=== PATIENT | female | born 1975 | race Caucasian/White ===

== ENCOUNTER 2020-01-25 16:40 | Emergency (ER) | payer MEDICARE, MEDICAID, SELFPAY ==
--- NOTE | 2020-01-25 16:48 | DI.RAD.S_ITS ---
PROCEDURE: XR CHEST 1V INDICATIONS: overdose, agitation TECHNIQUE: One view of the chest was acquired. COMPARISON: None. FINDINGS: Surgical changes and devices: None. Lungs and pleura: Lungs are clear. No pleural effusions or pneumothorax. Mediastinum: Mediastinal contours appear normal. Heart size is normal. Bones and chest wall: No suspicious bony lesions. Overlying soft tissues appear unremarkable. IMPRESSION: No acute cardiopulmonary abnormalities or focal airspace disease. Dictated by: John Hanson M.D. on 01/25/2020 at 20:27 Approved by: John Hanson M.D. on 01/25/2020 at 20:29
--- NOTE | 2020-01-25 16:49 | ED_ITS ---
HPI - Overdose <Elo Ojeda, DO - Last Filed: 01/25/20 19:20> General Chief Complaint: Psychiatric Symptoms Stated Complaint: took mouthful of tegretol Time Seen by Provider: 01/25/20 16:40 Source: patient, EMS and other (caregiver/boyfriend) Mode of arrival: EMS Limitations: no limitations History of Present Illness HPI Narrative: 44-year-old female comes to the emergency department with complaint of agitation and that she took a mouthful of Tegretol. EMS was contacted. Per patient's caregivers/power of erisa attorney/boyfriend patient has a history of Asperger's pain or autism, seizure disorder, hyponatremia, SIADH, hypothyroidism and hidradenitis. She has had a prior bariatric surgery, [place] for ostomy and GI bleeds in the past. They have had increasing stress secondary to legal issues and the caregivers mother living with them after having a fall and a hip replacement and she became more agitated and upset today. Patient took a mouthful of Tegretol which was still within her mouth when she arrived to the ER. She was aggressive and combative with EMS they gave her Versed in route, additional dose just on arrival. Patient has become more verbal she is typically verbal and ambulatory in stated that she was trying her kill herself and that she is pissed off and angry. She has told the nursing staff that she would tried another way if she had another option available to her. She does not answer any other questions for me at this time. Patient has told us ?I do not give a shit? and ?that you people can all fuck off.? Related Data Home Medications Medication Instructions Recorded Confirmed Flax, Fish and Borage Oil 30 ml PO DAILY 01/25/20 01/25/20 Heart Remedy 30 ml PO DAILY 01/25/20 01/25/20 Lemon Fish Oil 30 ml PO DAILY 01/25/20 01/25/20 [place] Coconut Oil 30 ml PO DAILY 01/25/20 01/25/20 carbamazepine [Tegretol] 400 mg PO TID 01/25/20 01/25/20 diazepam [Valium] 5 mg PO TID 01/25/20 01/25/20 fentanyl 75 mcg TOPICAL Q48H 01/25/20 01/25/20 hydromorphone 4 mg PO Q4-6H PRN MDD 5 tab 01/25/20 01/25/20 multivitamin 10 ml PO DAILY 01/25/20 01/25/20 sodium chloride 1,000 mg PO DAILY 01/25/20 01/25/20 thyroid (pork) [[place] Thyroid] 30 mg PO DAILY 01/25/20 01/25/20 thyroid (pork) [[place] Thyroid] 60 mg PO DAILY 01/25/20 01/25/20 Allergies Allergy/AdvReac Type Severity Reaction Status Date / Time Haloperidol Allergy Unknown Uncoded 03/11/18 11:46 Phenobarbital Allergy Unknown Uncoded 03/11/18 11:46 Prochlorperazine Allergy Unknown Uncoded 03/11/18 11:46 Tetanus Toxoid Allergy Unknown Uncoded 03/11/18 11:46 Review of Systems <Elo Ojeda DO - Last Filed: 01/25/20 19:20> Review of Systems ROS Unobtainable: Other (unable to obtain. patient does not answer questions.) Patient History <Elo Ojeda DO - Last Filed: 01/25/20 19:20> Surgical History (Updated 01/25/20 @ 17:09 by Elo Ojeda DO) History of bariatric surgery (Acute) Exam <Elo Ojeda DO - Last Filed: 01/25/20 19:20> Narrative Exam Narrative: GEN: well nourished, well appearing female, alert, patient does not answer majority of questions but has clear speech, patient appears to be in moderate distress. Patient is uncooperative with care. Initially she was not verbally responsive but has become more verbal screaming and yelling you order at the staff and myself. Patient is an agitated and aggressive. She does know that she is at [facility] and has expressed this several times that she does not wish to be here. HEENT: Atraumatic, pupils are equal round reactive to light, extraocular movements are intact, no nystagmus noted, nares are clear, throat is clear without any exudates, erythema, tonsillar enlargement or uvular deviation, patient has multiple tablets chewed up with in her mouth these were suctioned ou t with little bit of saline and majority was removed. HEART: Regular rate and rhythm without murmur, clicks, rubs. Pulses are equal in upper and lower extremities LUNGS:Lungs clear to auscultation, no wheezes, rales, crackles, chest moves symmetrically ABD:bowel sounds normal, soft, non-tender, no guarding, rebound, rigidity, no masses noted, no hepatosplenomegaly :No CVA tenderness MSCL: Non-tender, no muscle atrophy, muscles strength 5/5 upper and lower extremities, full range of motion. NEURO:CN 2-12 intact, sensation normal. SKIN: No rash. PSYCH: Patient has expressed that she is suicidal and attempted to take the pills on purpose. She does not answer other questions. Initial Vital Signs Initial Vital Signs: Vital Signs Temperature 98.9 F 01/25/20 16:59 Pulse Rate 126 H 01/25/20 16:59 Respiratory Rate 34 H 01/25/20 16:59 Blood Pressure 107/83 01/25/20 16:59 Pulse Oximetry 96 01/25/20 16:59 <Esvin Ordonez DO - Last Filed: 01/26/20 08:14> Initial Vital Signs Initial Vital Signs: Vital Signs Temperature 98.9 F 01/25/20 16:59 Pulse Rate 126 H 01/25/20 16:59 Respiratory Rate 34 H 01/25/20 16:59 Blood Pressure 107/83 01/25/20 16:59 Pulse Oximetry 96 01/25/20 16:59 Course <Elo Ojdea, DO - Last Filed: 01/25/20 19:20> Orders Ordered: ED Orders 01/26/20 03:32 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 Stat Lorazepam (Ativan) 2 mg IV Q1HR PRN PRN Reason: Agitation Last Admin: 01/25/20 22:29 Dose: 2 mg Documented by: Admin: 01/25/20 18:14 Dose: 2 mg Documented by: CATHERINE Discontinued Medications Diazepam (Valium) 5 mg IV NOW ONE Stop: 01/25/20 17:48 Last Admin: 01/25/20 17:59 Dose: 5 mg Documented by: CATHERINE Hydromorphone HCl (Dilaudid) 2 mg PO NOW ONE Stop: 01/25/20 22:52 Last Admin: 01/25/20 23:52 Dose: Not Given Documented by: SHERRY Sodium Chloride (Normal Saline 0.9%) 1,000 mls @ 1,000 mls/hr IV BOLUS ONE Stop: 01/25/20 17:46 Last Infusion: 01/25/20 19:41 Dose: 0 mls/hr Documented by: Admin: 01/25/20 16:58 Dose: 1,000 mls/hr Documented by: SHERRY Lorazepam (Ativan) 2 mg IV NOW ONE Stop: 01/25/20 16:50 Last Admin: 01/25/20 16:58 Dose: 2 mg Documented by: SHERRY Lorazepam (Ativan) 2 mg IM NOW ONE Stop: 01/26/20 00:52 Last Admin: 01/26/20 01:18 Dose: 2 mg Documented by: AMARILIS Olanzapine (Zyprexa) 10 mg IM NOW ONE Stop: 01/26/20 00:53 Last Admin: 01/26/20 01:15 Dose: 10 mg Documented by: AMARILIS Vital Signs Vital signs: Vital Signs - 8 hr 01/26/20 01:48 01/26/20 08:00 Temperature 99.6 F Pulse Rate 94 H 89 Respiratory Rate 23 17 Blood Pressure [Left Arm] 108/61 107/63 Pulse Oximetry 97 99 <Esvin Ordonez DO - Last Filed: 01/26/20 08:14> Orders Ordered: ED Orders 01/26/20 03:32 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 [employer] Stat Lorazepam (Ativan) 2 mg IV Q1HR PRN PRN Reason: Agitation Last Admin: 01/25/20 22:29 Dose: 2 mg Documented by: Admin: 01/25/20 18:14 Dose: 2 mg Documented by: CATHERINE Discontinued Medications Diazepam (Valium) 5 mg IV NOW ONE Stop: 01/25/20 17:48 Last Admin: 01/25/20 17:59 Dose: 5 mg Documented by: CATHERINE Hydromorphone HCl (Dilaudid) 2 mg PO NOW ONE Stop: 01/25/20 22:52 Last Admin: 01/25/20 23:52 Dose: Not Given Documented by: SHERRY Sodium Chloride (Normal Saline 0.9%) 1,000 mls @ 1,000 mls/hr IV BOLUS ONE Stop: 01/25/20 17:46 Last Infusion: 01/25/20 19:41 Dose: 0 mls/hr Documented by: Admin: 01/25/20 16:58 Dose: 1,000 mls/hr Documented by: SHERRY Lorazepam (Ativan) 2 mg IV NOW ONE Stop: 01/25/20 16:50 Last Admin: 01/25/20 16:58 Dose: 2 mg Documented by: SHERRY Lorazepam (Ativan) 2 mg IM NOW ONE Stop: 01/26/20 00:52 Last Admin: 01/26/20 01:18 Dose: 2 mg Documented by: AMARILIS Olanzapine (Zyprexa) 10 mg IM NOW ONE Stop: 01/26/20 00:53 Last Admin: 01/26/20 01:15 Dose: 10 mg Documented by: AMARILIS Vital Signs Vital signs: Vital Signs - 8 hr 01/26/20 01:48 01/26/20 08:00 Temperature 99.6 F Pulse Rate 94 H 89 Respiratory Rate 23 17 Blood Pressure [Left Arm] 108/61 107/63 Pulse Oximetry 97 99 MDM - Overdose <Elo Ojeda DO - Last Filed: 01/25/20 19:20> Lab Data Attestation: I reviewed the patient's lab results. Result diagrams: 01/25/20 17:30 01/25/20 17:30 Labs: Lab Results 01/25/20 01/25/20 01/25/20 Range/Units 17:30 17:30 17:30 WBC 9.9 (4.5-11.0) X10^3/uL RBC 4.15 (4.0-5.2) X10^6/uL Hgb 13.2 (12.0-16.0) g/dL Hct 39.9 (36-46) % MCV 96.0 (80-100) fL MCH 31.7 (26-34) PG MCHC 33.0 (30-36) % RDW 13.1 (11.6-14.8) % Plt Count 336 (150-400) X10^3/uL Neut % (Auto) 32.3 L (50-75) % Lymph % (Auto) 53.5 H (25-40) % [place] % (Auto) 13.1 (3-14) % Eos % (Auto) 0.5 L (2-4) % Baso % (Auto) 0.6 (0-2) % Neut # (Auto) 3200 (6547-1853) /uL Lymph # (Auto) 5300 H (8659-9849) /uL [place] # (Auto) 1300 H (0-900) /uL Eos # (Auto) 100 (0-450) /uL Baso # (Auto) 100 (0-100) /uL PT 11.9 (10.1-12.7) SECONDS INR 1.0 (0.9-1.3) Sodium 133 L (137-145) mmol/L Potassium 4.2 (3.4-5.1) mmol/L Chloride 93 L (98-107) mmol/L Carbon Dioxide 22 (22-32) mmol/L BUN 4 L (7-17) mg/dL Creatinine 0.50 L (0.52-1.04) mg/dL Estimated GFR > 60.0 (>60) mL/min BUN/Creatinine Ratio 8.0 (6-22) Glucose 111 H (70-100) mg/dL Lactate (0.7-2.1) mmol/L Calcium 9.5 (8.4-10.2) mg/dL Total Bilirubin 0.4 (0.2-1.3) mg/dL Conjugated Bilirubin 0.0 (0.0-0.3) md/dL Unconjugated Bilirubin 0.3 (0.0-1.1) mg/dL AST 31 (14-36) IU/L ALT 21 (<35) IU/L Alkaline Phosphatase 85 (38-126) U/L Total Creatine Kinase 33 (30-135) U/L CK-MB (CK-2) TNP CK-MB (CK-2) Rel Index TNP Troponin I < 0.012 (0.01-0.034) ng/mL Total Protein 7.5 (6.3-8.2) g/dL Albumin 4.6 (3.5-5.0) g/dL Globulin 2.9 (1.7-4.1) g/dL Albumin/Globulin Ratio 1.6 (1.0-2.8) TSH (0.47-4.68) uIU/mL Urine Color Urine Appearance Urine pH (4.5-8.0) Ur Specific [place] (1.000-1.035) Urine Protein (Negative) Urine Glucose (UA) (Negative) g/dL Urine Ketones (NEGATIVE) Urine Occult Blood (Negative) Urine Nitrate (Negative) Urine Bilirubin (NEGATIVE) Urine Urobilinogen (0.2) E.U./dL Ur Leukocyte Esterase (NEGATIVE) Urine RBC (0-5/HPF) Urine WBC (0-5/HPF) Ur Squamous Epith Cells (0-5/HPF) Ur Transition Epith Cell (0-5/HPF) Amorphous Sediment Urine Bacteria (None) Ur Culture Indicated? Urine Test (Negative) Salicylates < 1.0 (<20) mg/dL U Opiates 300ng/mL cut (Negative) Ur Oxycodone Screen (Negative) Urine Methadone Screen (Negative) Acetaminophen < 10 L (10-30) ug/mL Ur Barbiturates Screen (Negative) Carbamazepine U Tricyclic Antidepress (Negative) Ur Phencyclidine Scrn (Negative) Ur Amphetamines Screen (Negative) U Methamphetamines Scrn (Negative) Ur MDMA Scrn (Ecstasy) (Negative) U Benzodiazepines Scrn (Negative) Urine Cocaine Screen (Negative) U Marijuana (THC) Screen (Negative) Ethyl Alcohol < 10 ( - 10) mg/dL Ref Test (Refrig) 01/25/20 01/25/20 01/25/20 Range/Units 17:30 17:30 18:30 WBC (4.5-11.0) X10^3/uL RBC (4.0-5.2) X10^6/uL Hgb (12.0-16.0) g/dL Hct (36-46) % MCV (80-100) fL MCH (26-34) PG MCHC (30-36) % RDW (11.6-14.8) % Plt Count (150-400) X10^3/uL Neut % (Auto) (50-75) % Lymph % (Auto) (25-40) % [place] % (Auto) (3-14) % Eos % (Auto) (2-4) % Baso % (Auto) (0-2) % Neut # (Auto) (6824-6774) /uL Lymph # (Auto) (7855-4088) /uL [place] # (Auto) (0-900) /uL Eos # (Auto) (0-450) /uL Baso # (Auto) (0-100) /uL PT (10.1-12.7) SECONDS INR (0.9-1.3) Sodium (137-145) mmol/L Potassium (3.4-5.1) mmol/L Chloride (98-107) mmol/L Carbon Dioxide (22-32) mmol/L BUN (7-17) mg/dL Creatinine (0.52-1.04) mg/dL Estimated GFR (>60) mL/min BUN/Creatinine Ratio (6-22) Glucose (70-100) mg/dL Lactate 2.8 H (0.7-2.1) mmol/L Calcium (8.4-10.2) mg/dL Total Bilirubin (0.2-1.3) mg/dL Conjugated Bilirubin (0.0-0.3) md/dL Unconjugated Bilirubin (0.0-1.1) mg/dL AST (14-36) IU/L ALT (<35) IU/L Alkaline Phosphatase (38-126) U/L Total Creatine Kinase (30-135) U/L CK-MB (CK-2) CK-MB (CK-2) Rel Index Troponin I (0.01-0.034) ng/mL Total Protein (6.3-8.2) g/dL Albumin (3.5-5.0) g/dL Globulin (1.7-4.1) g/dL Albumin/Globulin Ratio (1.0-2.8) TSH 1.31 (0.47-4.68) uIU/mL Urine Color Urine Appearance Urine pH (4.5-8.0) Ur Specific [place] (1.000-1.035) Urine Protein (Negative) Urine Glucose (UA) (Negative) g/dL Urine Ketones (NEGATIVE) Urine Occult Blood (Negative) Urine Nitrate (Negative) Urine Bilirubin (NEGATIVE) Urine Urobilinogen (0.2) E.U./dL Ur Leukocyte Esterase (NEGATIVE) Urine RBC (0-5/HPF) Urine WBC (0-5/HPF) Ur Squamous Epith Cells (0-5/HPF) Ur Transition Epith Cell (0-5/HPF) Amorphous Sediment Urine Bacteria (None) Ur Culture Indicated? Urine Test (Negative) Salicylates (<20) mg/dL U Opiates 300ng/mL cut (Negative) Ur Oxycodone Screen (Negative) Urine Methadone Screen (Negative) Acetaminophen (10-30) ug/mL Ur Barbiturates Screen (Negative) Carbamazepine Cancelled U Tricyclic Antidepress (Negative) Ur Phencyclidine Scrn (Negative) Ur Amphetamines Screen (Negative) U Methamphetamines Scrn (Negative) Ur MDMA Scrn (Ecstasy) (Negative) U Benzodiazepines Scrn (Negative) Urine Cocaine Screen (Negative) U Marijuana (THC) Screen (Negative) Ethyl Alcohol ( - 10) mg/dL Ref Test (Refrig) . 01/25/20 01/25/20 01/25/20 Range/Units 20:20 20:20 20:20 WBC (4.5-11.0) X10^3/uL RBC (4.0-5.2) X10^6/uL Hgb (12.0-16.0) g/dL Hct (36-46) % MCV (80-100) fL MCH (26-34) PG MCHC (30-36) % RDW (11.6-14.8) % Plt Count (150-400) X10^3/uL Neut % (Auto) (50-75) % Lymph % (Auto) (25-40) % [place] % (Auto) (3-14) % Eos % (Auto) (2-4) % Baso % (Auto) (0-2) % Neut # (Auto) (8898-5958) /uL Lymph # (Auto) (7371-4102) /uL [place] # (Auto) (0-900) /uL Eos # (Auto) (0-450) /uL Baso # (Auto) (0-100) /uL PT (10.1-12.7) SECONDS INR (0.9-1.3) Sodium (137-145) mmol/L Potassium (3.4-5.1) mmol/L Chloride (98-107) mmol/L Carbon Dioxide (22-32) mmol/L BUN (7-17) mg/dL Creatinine (0.52-1.04) mg/dL Estimated GFR (>60) mL/min BUN/Creatinine Ratio (6-22) Glucose (70-100) mg/dL Lactate (0.7-2.1) mmol/L Calcium (8.4-10.2) mg/dL Total Bilirubin (0.2-1.3) mg/dL Conjugated Bilirubin (0.0-0.3) md/dL Unconjugated Bilirubin (0.0-1.1) mg/dL AST (14-36) IU/L ALT (<35) IU/L Alkaline Phosphatase (38-126) U/L Total Creatine Kinase (30-135) U/L CK-MB (CK-2) CK-MB (CK-2) Rel Index Troponin I (0.01-0.034) ng/mL Total Protein (6.3-8.2) g/dL Albumin (3.5-5.0) g/dL Globulin (1.7-4.1) g/dL Albumin/Globulin Ratio (1.0-2.8) TSH (0.47-4.68) uIU/mL Urine Color Yellow Urine Appearance Cloudy Urine pH 7.0 (4.5-8.0) Ur Specific [place] 1.020 (1.000-1.035) Urine Protein Negative (Negative) Urine Glucose (UA) Negative (Negative) g/dL Urine Ketones 1+ H (NEGATIVE) Urine Occult Blood Negative (Negative) Urine Nitrate Negative (Negative) Urine Bilirubin Negative (NEGATIVE) Urine Urobilinogen 0.2 (0.2) E.U./dL Ur Leukocyte Esterase Negative (NEGATIVE) Urine RBC 0-1/hpf (0-5/HPF) Urine WBC 0-1/hpf (0-5/HPF) Ur Squamous Epith Cells 10-30 /hpf H (0-5/HPF) Ur Transition Epith Cell 5-10/hpf H (0-5/HPF) Amorphous Sediment 1+ Urine Bacteria Moderate (10-30) H (None) Ur Culture Indicated? Cult not indicated Urine Test Negative (Negative) Salicylates (<20) mg/dL U Opiates 300ng/mL cut Positive H (Negative) Ur Oxycodone Screen Negative (Negative) Urine Methadone Screen Negative (Negative) Acetaminophen (10-30) ug/mL Ur Barbiturates Screen Negative (Negative) Carbamazepine U Tricyclic Antidepress Negative (Negative) Ur Phencyclidine Scrn Negative (Negative) Ur Amphetamines Screen Negative (Negative) U Methamphetamines Scrn Negative (Negative) Ur MDMA Scrn (Ecstasy) Negative (Negative) U Benzodiazepines Scrn Positive H (Negative) Urine Cocaine Screen Negative (Negative) U Marijuana (THC) Screen Positive H (Negative) Ethyl Alcohol ( - 10) mg/dL Ref Test (Refrig) 01/25/20 Range/Units 21:07 WBC (4.5-11.0) X10^3/uL RBC (4.0-5.2) X10^6/uL Hgb (12.0-16.0) g/dL Hct (36-46) % MCV (80-100) fL MCH (26-34) PG MCHC (30-36) % RDW (11.6-14.8) % Plt Count (150-400) X10^3/uL Neut % (Auto) (50-75) % Lymph % (Auto) (25-40) % [place] % (Auto) (3-14) % Eos % (Auto) (2-4) % Baso % (Auto) (0-2) % Neut # (Auto) (6420-0981) /uL Lymph # (Auto) (5828-1989) /uL [place] # (Auto) (0-900) /uL Eos # (Auto) (0-450) /uL Baso # (Auto) (0-100) /uL PT (10.1-12.7) SECONDS INR (0.9-1.3) Sodium (137-145) mmol/L Potassium (3.4-5.1) mmol/L Chloride (98-107) mmol/L Carbon Dioxide (22-32) mmol/L BUN (7-17) mg/dL Creatinine (0.52-1.04) mg/dL Estimated GFR (>60) mL/min BUN/Creatinine Ratio (6-22) Glucose (70-100) mg/dL Lactate 0.8 (0.7-2.1) mmol/L Calcium (8.4-10.2) mg/dL Total Bilirubin (0.2-1.3) mg/dL Conjugated Bilirubin (0.0-0.3) md/dL Unconjugated Bilirubin (0.0-1.1) mg/dL AST (14-36) IU/L ALT (<35) IU/L Alkaline Phosphatase (38-126) U/L Total Creatine Kinase (30-135) U/L CK-MB (CK-2) CK-MB (CK-2) Rel Index Troponin I (0.01-0.034) ng/mL Total Protein (6.3-8.2) g/dL Albumin (3.5-5.0) g/dL Globulin (1.7-4.1) g/dL Albumin/Globulin Ratio (1.0-2.8) TSH (0.47-4.68) uIU/mL Urine Color Urine Appearance Urine pH (4.5-8.0) Ur Specific [place] (1.000-1.035) Urine Protein (Negative) Urine Glucose (UA) (Negative) g/dL Urine Ketones (NEGATIVE) Urine Occult Blood (Negative) Urine Nitrate (Negative) Urine Bilirubin (NEGATIVE) Urine Urobilinogen (0.2) E.U./dL Ur Leukocyte Esterase (NEGATIVE) Urine RBC (0-5/HPF) Urine WBC (0-5/HPF) Ur Squamous Epith Cells (0-5/HPF) Ur Transition Epith Cell (0-5/HPF) Amorphous Sediment Urine Bacteria (None) Ur Culture Indicated? Urine Test (Negative) Salicylates (<20) mg/dL U Opiates 300ng/mL cut (Negative) Ur Oxycodone Screen (Negative) Urine Methadone Screen (Negative) Acetaminophen (10-30) ug/mL Ur Barbiturates Screen (Negative) Carbamazepine U Tricyclic Antidepress (Negative) Ur Phencyclidine Scrn (Negative) Ur Amphetamines Screen (Negative) U Methamphetamines Scrn (Negative) Ur MDMA Scrn (Ecstasy) (Negative) U Benzodiazepines Scrn (Negative) Urine Cocaine Screen (Negative) U Marijuana (THC) Screen (Negative) Ethyl Alcohol ( - 10) mg/dL Ref Test (Refrig) [facility] Narrative Medical decision making narrative: Spoke with poison Control, patient can have nausea or vomiting heart rate can be elevated or depressed, blood pressure can be elevated or depressed, patient's typically become somnolent and have decreased respiratory drive. Typically patients will exhibit symptoms within 6- 8 hours of ingestion. If patient's carbamazepine level comes back elevated they would ask for a call back or if patient becomes symptomatic. They will continue to follow the patient. Urine tox and EKG are pending as patient has been too aggressive to obtain a helpful EKG. Labs otherwise have a TSH pending and carbamazepine level pending, it is being sent stat to [facility]. ETOH, salicylate and aspirin are negative, troponin LFTs and electrolytes show mild abnormalities with normal renal function. Lactate elevated 2.8 patient has been actively fighting throughout her stay and with EMS. Her total CK is 33. CBC is normal range. Patient signed out to Dr. Ordonez, patient still has CXR pending, EKG and urine tox. Poison control is following and patient requires monitoring for 6-8 hours prior to medical clearance. Discussed tox recommendations. Patient has verbalized this was a suicide attempt and has been uncooperative with care, pulled her IV and treatment and resisting because she wants to . She has received multiple doses of benzo's and is currently in physical restraints. Discussed patient would be appropriate candidate for DCR once medically cleared. <Esvin Ordonez, DO - Last Filed: 01/26/20 08:14> Lab Data Labs: Lab Results 01/25/20 01/25/20 01/25/20 Range/Units 17:30 17:30 17:30 WBC 9.9 (4.5-11.0) X10^3/uL RBC 4.15 (4.0-5.2) X10^6/uL Hgb 13.2 (12.0-16.0) g/dL Hct 39.9 (36-46) % MCV 96.0 (80-100) fL MCH 31.7 (26-34) PG MCHC 33.0 (30-36) % RDW 13.1 (11.6-14.8) % Plt Count 336 (150-400) X10^3/uL Neut % (Auto) 32.3 L (50-75) % Lymph % (Auto) 53.5 H (25-40) % [place] % (Auto) 13.1 (3-14) % Eos % (Auto) 0.5 L (2-4) % Baso % (Auto) 0.6 (0-2) % Neut # (Auto) 3200 (4156-8246) /uL Lymph # (Auto) 5300 H (7398-5407) /uL [place] # (Auto) 1300 H (0-900) /uL Eos # (Auto) 100 (0-450) /uL Baso # (Auto) 100 (0-100) /uL PT 11.9 (10.1-12.7) SECONDS INR 1.0 (0.9-1.3) Sodium 133 L (137-145) mmol/L Potassium 4.2 (3.4-5.1) mmol/L Chloride 93 L (98-107) mmol/L Carbon Dioxide 22 (22-32) mmol/L BUN 4 L (7-17) mg/dL Creatinine 0.50 L (0.52-1.04) mg/dL Estimated GFR > 60.0 (>60) mL/min BUN/Creatinine Ratio 8.0 (6-22) Glucose 111 H (70-100) mg/dL Lactate (0.7-2.1) mmol/L Calcium 9.5 (8.4-10.2) mg/dL Total Bilirubin 0.4 (0.2-1.3) mg/dL Conjugated Bilirubin 0.0 (0.0-0.3) md/dL Unconjugated Bilirubin 0.3 (0.0-1.1) mg/dL AST 31 (14-36) IU/L ALT 21 (<35) IU/L Alkaline Phosphatase 85 (38-126) U/L Total Creatine Kinase 33 (30-135) U/L CK-MB (CK-2) TNP CK-MB (CK-2) Rel Index TNP Troponin I < 0.012 (0.01-0.034) ng/mL Total Protein 7.5 (6.3-8.2) g/dL Albumin 4.6 (3.5-5.0) g/dL Globulin 2.9 (1.7-4.1) g/dL Albumin/Globulin Ratio 1.6 (1.0-2.8) TSH (0.47-4.68) uIU/mL Urine Color Urine Appearance Urine pH (4.5-8.0) Ur Specific [place] (1.000-1.035) Urine Protein (Negative) Urine Glucose (UA) (Negative) g/dL Urine Ketones (NEGATIVE) Urine Occult Blood (Negative) Urine Nitrate (Negative) Urine Bilirubin (NEGATIVE) Urine Urobilinogen (0.2) E.U./dL Ur Leukocyte Esterase (NEGATIVE) Urine RBC (0-5/HPF) Urine WBC (0-5/HPF) Ur Squamous Epith Cells (0-5/HPF) Ur Transition Epith Cell (0-5/HPF) Amorphous Sediment Urine Bacteria (None) Ur Culture Indicated? Urine Test (Negative) Salicylates < 1.0 (<20) mg/dL U Opiates 300ng/mL cut (Negative) Ur Oxycodone Screen (Negative) Urine Methadone Screen (Negative) Acetaminophen < 10 L (10-30) ug/mL Ur Barbiturates Screen (Negative) Carbamazepine U Tricyclic Antidepress (Negative) Ur Phencyclidine Scrn (Negative) Ur Amphetamines Screen (Negative) U Methamphetamines Scrn (Negative) Ur MDMA Scrn (Ecstasy) (Negative) U Benzodiazepines Scrn (Negative) Urine Cocaine Screen (Negative) U Marijuana (THC) Screen (Negative) Ethyl Alcohol < 10 ( - 10) mg/dL Ref Test (Refrig) 01/25/20 01/25/20 01/25/20 Range/Units 17:30 17:30 18:30 WBC (4.5-11.0) X10^3/uL RBC (4.0-5.2) X10^6/uL Hgb (12.0-16.0) g/dL Hct (36-46) % MCV (80-100) fL MCH (26-34) PG MCHC (30-36) % RDW (11.6-14.8) % Plt Count (150-400) X10^3/uL Neut % (Auto) (50-75) % Lymph % (Auto) (25-40) % [place] % (Auto) (3-14) % Eos % (Auto) (2-4) % Baso % (Auto) (0-2) % Neut # (Auto) (2654-5122) /uL Lymph # (Auto) (3510-6323) /uL [place] # (Auto) (0-900) /uL Eos # (Auto) (0-450) /uL Baso # (Auto) (0-100) /uL PT (10.1-12.7) SECONDS INR (0.9-1.3) Sodium (137-145) mmol/L Potassium (3.4-5.1) mmol/L Chloride (98-107) mmol/L Carbon Dioxide (22-32) mmol/L BUN (7-17) mg/dL Creatinine (0.52-1.04) mg/dL Estimated GFR (>60) mL/min BUN/Creatinine Ratio (6-22) Glucose (70-100) mg/dL Lactate 2.8 H (0.7-2.1) mmol/L Calcium (8.4-10.2) mg/dL Total Bilirubin (0.2-1.3) mg/dL Conjugated Bilirubin (0.0-0.3) md/dL Unconjugated Bilirubin (0.0-1.1) mg/dL AST (14-36) IU/L ALT (<35) IU/L Alkaline Phosphatase (38-126) U/L Total Creatine Kinase (30-135) U/L CK-MB (CK-2) CK-MB (CK-2) Rel Index Troponin I (0.01-0.034) ng/mL Total Protein (6.3-8.2) g/dL Albumin (3.5-5.0) g/dL Globulin (1.7-4.1) g/dL Albumin/Globulin Ratio (1.0-2.8) TSH 1.31 (0.47-4.68) uIU/mL Urine Color Urine Appearance Urine pH (4.5-8.0) Ur Specific [place] (1.000-1.035) Urine Protein (Negative) Urine Glucose (UA) (Negative) g/dL Urine Ketones (NEGATIVE) Urine Occult Blood (Negative) Urine Nitrate (Negative) Urine Bilirubin (NEGATIVE) Urine Urobilinogen (0.2) E.U./dL Ur Leukocyte Esterase (NEGATIVE) Urine RBC (0-5/HPF) Urine WBC (0-5/HPF) Ur Squamous Epith Cells (0-5/HPF) Ur Transition Epith Cell (0-5/HPF) Amorphous Sediment Urine Bacteria (None) Ur Culture Indicated? Urine Test (Negative) Salicylates (<20) mg/dL U Opiates 300ng/mL cut (Negative) Ur Oxycodone Screen (Negative) Urine Methadone Screen (Negative) Acetaminophen (10-30) ug/mL Ur Barbiturates Screen (Negative) Carbamazepine Cancelled U Tricyclic Antidepress (Negative) Ur Phencyclidine Scrn (Negative) Ur Amphetamines Screen (Negative) U Methamphetamines Scrn (Negative) Ur MDMA Scrn (Ecstasy) (Negative) U Benzodiazepines Scrn (Negative) Urine Cocaine Screen (Negative) U Marijuana (THC) Screen (Negative) Ethyl Alcohol ( - 10) mg/dL Ref Test (Refrig) . 01/25/20 01/25/20 01/25/20 Range/Units 20:20 20:20 20:20 WBC (4.5-11.0) X10^3/uL RBC (4.0-5.2) X10^6/uL Hgb (12.0-16.0) g/dL Hct (36-46) % MCV (80-100) fL MCH (26-34) PG MCHC (30-36) % RDW (11.6-14.8) % Plt Count (150-400) X10^3/uL Neut % (Auto) (50-75) % Lymph % (Auto) (25-40) % [place] % (Auto) (3-14) % Eos % (Auto) (2-4) % Baso % (Auto) (0-2) % Neut # (Auto) (9920-3075) /uL Lymph # (Auto) (6169-4784) /uL [place] # (Auto) (0-900) /uL Eos # (Auto) (0-450) /uL Baso # (Auto) (0-100) /uL PT (10.1-12.7) SECONDS INR (0.9-1.3) Sodium (137-145) mmol/L Potassium (3.4-5.1) mmol/L Chloride (98-107) mmol/L Carbon Dioxide (22-32) mmol/L BUN (7-17) mg/dL Creatinine (0.52-1.04) mg/dL Estimated GFR (>60) mL/min BUN/Creatinine Ratio (6-22) Glucose (70-100) mg/dL Lactate (0.7-2.1) mmol/L Calcium (8.4-10.2) mg/dL Total Bilirubin (0.2-1.3) mg/dL Conjugated Bilirubin (0.0-0.3) md/dL Unconjugated Bilirubin (0.0-1.1) mg/dL AST (14-36) IU/L ALT (<35) IU/L Alkaline Phosphatase (38-126) U/L Total Creatine Kinase (30-135) U/L CK-MB (CK-2) CK-MB (CK-2) Rel Index Troponin I (0.01-0.034) ng/mL Total Protein (6.3-8.2) g/dL Albumin (3.5-5.0) g/dL Globulin (1.7-4.1) g/dL Albumin/Globulin Ratio (1.0-2.8) TSH (0.47-4.68) uIU/mL Urine Color Yellow Urine Appearance Cloudy Urine pH 7.0 (4.5-8.0) Ur Specific [place] 1.020 (1.000-1.035) Urine Protein Negative (Negative) Urine Glucose (UA) Negative (Negative) g/dL Urine Ketones 1+ H (NEGATIVE) Urine Occult Blood Negative (Negative) Urine Nitrate Negative (Negative) Urine Bilirubin Negative (NEGATIVE) Urine Urobilinogen 0.2 (0.2) E.U./dL Ur Leukocyte Esterase Negative (NEGATIVE) Urine RBC 0-1/hpf (0-5/HPF) Urine WBC 0-1/hpf (0-5/HPF) Ur Squamous Epith Cells 10-30 /hpf H (0-5/HPF) Ur Transition Epith Cell 5-10/hpf H (0-5/HPF) Amorphous Sediment 1+ Urine Bacteria Moderate (10-30) H (None) Ur Culture Indicated? Cult not indicated Urine Test Negative (Negative) Salicylates (<20) mg/dL U Opiates 300ng/mL cut Positive H (Negative) Ur Oxycodone Screen Negative (Negative) Urine Methadone Screen Negative (Negative) Acetaminophen (10-30) ug/mL Ur Barbiturates Screen Negative (Negative) Carbamazepine U Tricyclic Antidepress Negative (Negative) Ur Phencyclidine Scrn Negative (Negative) Ur Amphetamines Screen Negative (Negative) U Methamphetamines Scrn Negative (Negative) Ur MDMA Scrn (Ecstasy) Negative (Negative) U Benzodiazepines Scrn Positive H (Negative) Urine Cocaine Screen Negative (Negative) U Marijuana (THC) Screen Positive H (Negative) Ethyl Alcohol ( - 10) mg/dL Ref Test (Refrig) 01/25/20 Range/Units 21:07 WBC (4.5-11.0) X10^3/uL RBC (4.0-5.2) X10^6/uL Hgb (12.0-16.0) g/dL Hct (36-46) % MCV (80-100) fL MCH (26-34) PG MCHC (30-36) % RDW (11.6-14.8) % Plt Count (150-400) X10^3/uL Neut % (Auto) (50-75) % Lymph % (Auto) (25-40) % [place] % (Auto) (3-14) % Eos % (Auto) (2-4) % Baso % (Auto) (0-2) % Neut # (Auto) (2352-6154) /uL Lymph # (Auto) (3156-5504) /uL [place] # (Auto) (0-900) /uL Eos # (Auto) (0-450) /uL Baso # (Auto) (0-100) /uL PT (10.1-12.7) SECONDS INR (0.9-1.3) Sodium (137-145) mmol/L Potassium (3.4-5.1) mmol/L Chloride (98-107) mmol/L Carbon Dioxide (22-32) mmol/L BUN (7-17) mg/dL Creatinine (0.52-1.04) mg/dL Estimated GFR (>60) mL/min BUN/Creatinine Ratio (6-22) Glucose (70-100) mg/dL Lactate 0.8 (0.7-2.1) mmol/L Calcium (8.4-10.2) mg/dL Total Bilirubin (0.2-1.3) mg/dL Conjugated Bilirubin (0.0-0.3) md/dL Unconjugated Bilirubin (0.0-1.1) mg/dL AST (14-36) IU/L ALT (<35) IU/L Alkaline Phosphatase (38-126) U/L Total Creatine Kinase (30-135) U/L CK-MB (CK-2) CK-MB (CK-2) Rel Index Troponin I (0.01-0.034) ng/mL Total Protein (6.3-8.2) g/dL Albumin (3.5-5.0) g/dL Globulin (1.7-4.1) g/dL Albumin/Globulin Ratio (1.0-2.8) TSH (0.47-4.68) uIU/mL Urine Color Urine Appearance Urine pH (4.5-8.0) Ur Specific [place] (1.000-1.035) Urine Protein (Negative) Urine Glucose (UA) (Negative) g/dL Urine Ketones (NEGATIVE) Urine Occult Blood (Negative) Urine Nitrate (Negative) Urine Bilirubin (NEGATIVE) Urine Urobilinogen (0.2) E.U./dL Ur Leukocyte Esterase (NEGATIVE) Urine RBC (0-5/HPF) Urine WBC (0-5/HPF) Ur Squamous Epith Cells (0-5/HPF) Ur Transition Epith Cell (0-5/HPF) Amorphous Sediment Urine Bacteria (None) Ur Culture Indicated? Urine Test (Negative) Salicylates (<20) mg/dL U Opiates 300ng/mL cut (Negative) Ur Oxycodone Screen (Negative) Urine Methadone Screen (Negative) Acetaminophen (10-30) ug/mL Ur Barbiturates Screen (Negative) Carbamazepine U Tricyclic Antidepress (Negative) Ur Phencyclidine Scrn (Negative) Ur Amphetamines Screen (Negative) U Methamphetamines Scrn (Negative) Ur MDMA Scrn (Ecstasy) (Negative) U Benzodiazepines Scrn (Negative) Urine Cocaine Screen (Negative) U Marijuana (THC) Screen (Negative) Ethyl Alcohol ( - 10) mg/dL Ref Test (Refrig) ECG Data Attestation: I personally reviewed and interpreted this ECG as follows: Prior ECG tracings: not available for review Interpretation: Ventricular rate 82 Sinus rhythm Normal axis Normal QRS 106 milliseconds Normal QTC MDM Narrative Medical decision making narrative: Dr ordonez: Received turned over from Dr ojeda who was the initial day provider who evaluated the patient upon arrival. Turned over states that Dr. ojeda thought that the patient was alert oriented x3. Dr. Ojeda stated that the patient made multiple comments about we were keeping her from dying and that she did want to kill herself. Upon my arrival patient was in restraints. She did become somewhat calm and was able to take the restraints off. Her urinalysis was positive for opioids and benzos however she takes pain medication was given benzos prior to arrival. Is also positive for THC. Patient's Tegretol level came back within normal limits. I did discuss this with poison Control. Given the medication that she took the stated that we did not need to repeat any further testing. Her QRS was unremarkable. They state that as far as the Tegretol which the patient took she was medically cleared. Patient then started to complain about having pain. She does appear to be on quite a bit of pain medication at home. Since the patient was medically cleared and had no respiratory distress I did offer her her oral Dilaudid for pain. Patient declined this. She stated that she wanted it through the IV. She did not have an IV. She had pulled the 2 prior IVs out. I did not feel the need to restart an IV just to give her IV pain medication. I did inform her this. I did inform her that I was offering her her home medication however she declined. She states that her pain was too much for this. She became very aggressive. Was hitting herself. Was hitting her head. She was placed back in restraints. She was not directable during this time. The DCR did come to evaluate the patient in the emergency department. 0333: Patient has been calm since given the IM Zyprexa and Ativan. The restraints were discontinued at 0300 hours in the morning when the order . Patient was evaluated by the DCR and was a initially determined that she should be involuntarily detained. He attempted to contact several different facilities and her unable to find placement due to several reasons. There were some facilities that the rejection was because of bed assignment. DCR unable to legally detain her due to lack of bed availability and also due to the lack that this facility is a single bed mental health facility. I do feel that it is not appropriate to discharge the patient home. I do not feel it is safe to do this currently. She has not demonstrated to myself that she has the capacity to make decisions. Plan will be to continue to observe the patient here in the emergency department and re-evaluate in the morning. Social work consult was placed. We will continue to monitor patient. Care turned over to Dr ojeda for further dispo Discharge Plan Departure Clinical Impression: Intentional overdose of drug in tablet form Prescriptions: No Action carbamazepine [Tegretol] 200 mg tablet 400 mg PO TID RF: 0 hydromorphone 4 mg tablet 4 mg PO Q4-6H MDD 5 tab PRN (Reason: pain) RF: 0 fentanyl 75 mcg/hr patch 72 hour 75 mcg topical Q48H RF: 0 diazepam [Valium] 5 mg tablet 5 mg PO TID RF: 0 thyroid (pork) [[place] Thyroid] 15 mg tablet 30 mg PO DAILY RF: 0 thyroid (pork) [[place] Thyroid] 60 mg tablet 60 mg PO DAILY RF: 0 multivitamin Liquid 10 ml PO DAILY RF: 0 sodium chloride 1 gram Tablet 1,000 mg PO DAILY RF: 0 Flax, Fish and Borage Oil 30 ml PO DAILY RF: 0 Heart Remedy 30 ml PO DAILY RF: 0 Lemon Fish Oil 30 ml PO DAILY RF: 0 [place] Coconut Oil 30 ml PO DAILY RF: 0 Referrals: Daniela Valadez [Primary Care Provider] -
[2020-01-25] MEDS: SODIUM CHLORIDE 0.9% 1,000 ML 1000 ML IV (16:58)
[2020-01-25] MEDS: LORazepam 2 MG/ML INJ IV ×3 (16:58→22:29)
[2020-01-25 16:59] VITALS: BP 107/83; PULSE 126; RESP 34; TEMP 37.2; O2SAT 96
--- NOTE | 2020-01-25 17:42 | PC.NURSE ---
Pt. started to move a lot in bed. Patient was able to take out her IV. I called JACOB alexander to help. RN dressed the IV site and Lorenzo started a new IV. Pt. is still yelling and screaming. let me go. Let me kill my self...I don't want to be here. Let me out. Notified.
[2020-01-25] MEDS: diazePAM 10 MG/2 ML SYRINGE 5 MG IV (17:59)
--- NOTE | 2020-01-25 18:22 | PC.NURSE ---
Addendum entered by Ban Goldstein R.N. 01/25/20 23:39: 2230 Correction to MAR, Ativan given IM due to lack of IV. Patient was violent, hitting, yelling and saying if you can't end this pain I'm going to end it myself. Addendum entered by Ban Goldstein R.N. 01/25/20 23:28: Patient sipping peppermint tea with Primo's help. Still insisting she will not take the PO medication, yells I can't handle this pain, one pill is not going to help Addendum entered by Ban Goldstein R.N. 01/25/20 23:04: Patient is refusing to take medication PO. Insists on getting a 3rd IV to take the Dilaudid. Yelling I won't mess with the IV, give it to me through the IV, give me another chance! Primo is bedside, not saying anything. I remind patient I have the medication she has been asking for right here, she can take it now. Patient is now insisting she will not eat or drink anything until she gets an IV. Addendum entered by Ban Goldstein R.N. 01/25/20 22:52: Primo has arrived bedside. Reassuring patient. Addendum entered by Ban Goldstein R.N. 01/25/20 22:33: Patient says I'm leaving, I can end this. Patient yelling, hitting and attempting to kick this RN and fellow staff. Patient yells, I should have just taken the whole bottle! Wants to talk to Primo, attempting to get Primo on the phone so that he can talk to her. Addendum entered by Ban Goldstein R.N. 01/25/20 22:13: Patient becoming more agitated due to abdominal pain. Offered repositioning, warm blanket, pillows, tylenol, patient yells nothing but my hydromorphone will help reminded patient we have to wait for pending lab Addendum entered by Ban Goldstein R.N. 01/25/20 21:58: Patient becoming agitated d/t pain, refuses to take anything PO except for hydromorphone. Will follow up. Up to BS for bowel movement. Addendum entered by Ban Goldstein R.N. 01/25/20 21:15: Patient appears to be resting at this time. equipment monitor phototypesetting intact, pulse ox intact. Patient's breathing is unlabored, WNL. Restraints are intact, circulation is WNL. Pillow and warm blankets provided. Addendum entered by Ban Goldstein R.N. 01/25/20 20:33: Patient able to urinate on the bedpan, patient c/o pain during urination. Bed linens changed, patient refused to change pants or put on a different brief. Patient repositioned, restraints reapplied, warm blankets provided. Addendum entered by Ban Goldstein R.N. 01/25/20 20:06: Patient C/O pain in shoulder, readjusted patient to both arms below waist. Offered patient bedpan, she says she can pee now. Patient repositioned onto bedpan. Given warm blanket for privacy and restraints loosened. Addendum entered by Ban Goldstein R.N. 01/25/20 19:43: Attempted to flush IV after redressing, patient pulling at restraints and yelling, unable to flush successfully, IV removed. Physician aware. Patient refuses to take PO medications, telling Primo I should have taken the pills when you weren't at home, why did you call them?. Asked patient if she would be willing to give a urine sample, patient yells I don't have to pee right now. Patient is agitated. Asked patient if she would take PO ativan, patient refuses at this time. Original Note: Patient is extremely agitated, you should have let me do what I wanted to do and end this. Attempting to kick and pull at restraints. Patient is currently in ordered restraints, circulation is WNL. Lab up to draw, will wait for a moment to see if patient responds to given PRN Ativan.
[2020-01-25 18:30] LABS: Add Manual Diff / Slide Review NO; Basophils Absolute Auto 100 /uL (0-100); Basophils Percent Auto 0.6 % (0-2); Eosinophils Absolute Auto 100 /uL (0-450); Eosinophils Percent Auto 0.5 % (2-4); Hematocrit 39.9 % (36-46); Hemoglobin 13.2 g/dL (12.0-16.0); Lymphocytes Absolute Auto 5300 /uL (1100-4500); Lymphocytes Percent Auto 53.5 % (25-40); Mean Corpuscular Hemoglobin 31.7 PG (26-34); Monocytes Absolute Auto 1300 /uL (0-900); Monocytes Percent Auto 13.1 % (3-14); Neutrophils Absolute Auto 3200 /uL (1500-7000); Neutrophils Percent Auto 32.3 % (50-75); Platelet Count 336 X10^3/uL (150-400); Red Blood Cell Count 4.15 X10^6/uL (4.0-5.2); Red Cell Distribution Width 13.1 % (11.6-14.8); White Blood Cell Count 9.9 X10^3/uL (4.5-11.0)
[2020-01-25 18:32] LABS: Acetaminophen < 10 ug/mL (10-30); Albumin 4.6 g/dL (3.5-5.0); Albumin Globulin Ratio 1.6 (1.0-2.8); Alkaline Phosphatase 85 U/L (38-126); Aspartate Aminotransferase 31 IU/L (14-36); Bilirubin Total 0.4 mg/dL (0.2-1.3); Bilirubin Unconjugated 0.3 mg/dL (0.0-1.1); Blood Urea Nitrogen 4 mg/dL (7-17); Calcium 9.5 mg/dL (8.4-10.2); Carbon Dioxide 22 mmol/L (22-32); Chloride 93 mmol/L (98-107); Creatine Kinase 33 U/L (30-135); Estimated Glomerular Filt Rate > 60.0 mL/min (>60); Ethanol (ETOH) < 10 mg/dL; Globulin 2.9 g/dL (1.7-4.1); Glucose 111 mg/dL (70-100); HEMOLYSIS < 15 (0-50); Potassium 4.2 mmol/L (3.4-5.1); Prothrombin Time 11.9 SECONDS (10.1-12.7); Salicylate < 1.0 mg/dL (<20); Sodium 133 mmol/L (137-145); Total Protein 7.5 g/dL (6.3-8.2)
[2020-01-25 18:38] LABS: Alanine Aminotransferase 21 IU/L (<35)
[2020-01-25 18:43] LABS: Troponin I < 0.012 ng/mL (0.01-0.034)
--- NOTE | 2020-01-25 18:46 | PC.NURSE ---
2548 Patient pulled out catheter at this time from thrashing in bed. New IV to be placed.
--- NOTE | 2020-01-25 18:47 | PC.NURSE ---
1720 Patient hit head on siderail repeatedly, softly, no injuries noted. Seizure pads placed so that she cannot injure herself. patient's restraints readjusted at this time to get her more centered in the bed. Benjamin applied to IV to attempt to secure it.
[2020-01-25 18:48] LABS: Lactate (Lactic Acid) 2.8 mmol/L (0.7-2.1)
[2020-01-25 18:58] VITALS: PULSE 114; RESP 18; O2SAT 100
[2020-01-25 19:12] VITALS: BP 129/63
--- NOTE | 2020-01-25 19:43 | PC.NURSE ---
Ok to not have IV after second was pulled out be patient thrashing in bed, per Dr. Salas.
[2020-01-25 20:00] VITALS: BP 129/63; PULSE 80; RESP 16; O2SAT 99
[2020-01-25 20:10] LABS: Thyroid Stimulating Hormone 1.31 uIU/mL (0.47-4.68)
[2020-01-25 20:35] LABS: Appearance Urine UA CLOUDY; Bilirubin Urine UA NEGATIVE (NEGATIVE); Color Urine UA YELLOW; Glucose Urine UA NEGATIVE (Negative); Ketones Urine UA 1+ (NEGATIVE); Leukocyte Esterase Urine UA NEGATIVE (NEGATIVE); Nitrite Urine UA NEGATIVE (Negative); Occult Blood Urine UA NEGATIVE (Negative); Protein Urine UA NEGATIVE (Negative); Urobilinogen Urine UA 0.2 E.U./dL (0.2)
[2020-01-25 20:35] LABS: Reflexed Lactate in 2 Hours Y
[2020-01-25 20:36] LABS: Pregnancy Test Urine Negative (Negative)
[2020-01-25 20:40] LABS: Ur Creatinine Normal (Normal); Ur Specific Gravity Normal (Normal); Urine Tetrahydrocannabinol Positive (Negative); Urine pH Normal (Normal)
[2020-01-25 20:41] LABS: UR Morphine/Opiate cutoff 300 Positive (Negative); Urine Amphetamines Negative (Negative); Urine Barbiturates Negative (Negative); Urine Benzodiazepines Positive (Negative); Urine Cocaine Negative (Negative); Urine MDMA Negative (Negative); Urine Methadone Negative (Negative); Urine Methamphetamines Negative (Negative); Urine Oxycodone Negative (Negative); Urine Phencyclidine Negative (Negative); Urine Tricyclic Antidepressant Negative (Negative)
[2020-01-25 20:50] LABS: Amorphous Sediment Urine 1+; Bacteria Urine Moderate (10-30); Culture Indicated Urine Cult Not Indicated; RBC Urine 0-1/HPF (0-5/HPF); Squamous Epithelial Cell Urine 10-30 /HPF (0-5/HPF); Transitional Epi Cells Urine 5-10/HPF (0-5/HPF); WBC Urine 0-1/HPF (0-5/HPF)
[2020-01-25 21:25] LABS: Lactate 2HR (Lactic Acid Rflx) 0.8 mmol/L (0.7-2.1)
[2020-01-25 21:55] VITALS: BP 122/74; PULSE 92; RESP 16; O2SAT 98
[2020-01-25 21:56] VITALS: BP 122/74; PULSE 95; RESP 16; O2SAT 100
--- NOTE | 2020-01-25 23:34 | PC.NURSE ---
DCR called to come see patient at this time. patient is medically cleared.
--- NOTE | 2020-01-25 23:47 | PC.NURSE ---
Addendum entered by Manda Matthews CNA 01/26/20 00:03: 2400- Pt is agitated and continually asking for an IV. I just want to go to sleep, I just want to rest, I don't want to be here anymore. This GREENS PLANTER remains 1:1 at pt bedside. Original Note: 0685- Pt is agitated and states, They were lying. I'm not taking anything else, not drinking anything else, I don't care if I'm dehydrated. I'm not going to do anything else. Please take my life from me and I should be able to do what I want.
--- NOTE | 2020-01-26 00:38 | PC.NURSE ---
RONAN Staples arrived at 0018 to evaluate pt.
--- NOTE | 2020-01-26 00:49 | PC.NURSE ---
Addendum entered by Manda Matthews CNA 01/26/20 00:53: 2454- Pt is now screaming, It hurts, it hurts, I can't handle this anymore. Pt is grabbing at stomach. This PREPARING BOX TENDER asked if she wanted RN to give her oral medicine for pain and she constantly says No. I want it IV. Original Note: 0963- Pt is now groaning in agitation in bed and kicking feet. When talking to pt there is no coherent response, just continuous groans. Notifying RN of change.
[2020-01-26] MEDS: OLANZapine 10 MG VIAL IM (01:15)
[2020-01-26] MEDS: LORazepam 2 MG/ML INJ IM (01:18)
[2020-01-26 01:48] VITALS: BP 108/61; PULSE 94; RESP 23; O2SAT 97
--- NOTE | 2020-01-26 02:50 | PC.NURSE ---
PT resting on stretcher calmly with eyes closed, respirations observed with optical advisor at bedside, 4 point restraints removed per Dr. Ordonez verbal order. Pt remains calm and quiet after restraints are removed.
--- NOTE | 2020-01-26 03:25 | PC.NURSE ---
Patient adjusted herself for comfort in stretcher. Patient said she was cold, so she was given a warm blanket. She is quietly resting on stretcher in room with lights turned down and has sitter at bedside.
--- NOTE | 2020-01-26 04:08 | PC.NURSE ---
0400 Patient quietly resting on stretcher
--- NOTE | 2020-01-26 06:33 | PC.NURSE ---
Phone call received from Primo who states he is pt , Primo was updated that pt is resting and will be reassessed by provider when she awakes. Primo stated he is available at any time to come take pt home if discharged and feels safe taking her home and can be reached at [phone]. Dr. blackmon.
--- NOTE | 2020-01-26 07:32 | PC.NURSE ---
WIRE ROPE SALES REPRESENTATIVE/WARDROBE SPECIALIST Note: Patient is remains asleep.
[2020-01-26 08:00] VITALS: BP 107/63; PULSE 89; RESP 17; TEMP 37.6; O2SAT 99
--- NOTE | 2020-01-26 08:01 | PC.NURSE ---
PERSONAL INVESTMENT ADVISER/AISHA Note: Patient woke up for a brief moment. Pt. was compliant. Able to get vitals signs. when patient was asked how she was feeling, Pt. ignored RN and Tech. Pt. closed her eyes and went back to bed.
--- NOTE | 2020-01-26 08:06 | PC.NURSE ---
assuming care , pt sleeping easily awaken with verbal stimuli, eyes open, but pt non verbal, skin warm dry pink, vss. pt with continue close observation. plan of care reeval by EMBEDDED HARDWARE ENGINEER.
--- NOTE | 2020-01-26 08:19 | PC.NURSE ---
MEN'S LEATHER DRESS BELT MAKER/[facility] Note: Pt. refused breakfast this morning. Pt. is laying in bed awake. Tech offered fluids and bathroom, Pt. denied all. notified.
--- NOTE | 2020-01-26 08:27 | CM.SWNOTE ---
UNDER SEAL OPERATOR Consult Note Patient is a 44 year old female who was admitted to [facility] ED on 01/25/20 for suicidal ideation and attempt. Pt has MCR and RANDI for insurance. EMR was reviewed. Per MD, pt took a mouthful of medication (but did not swallow and was still in her mouth when EMS arrived) and was uncooperative with care and agitated and needed to be in soft restraints. Pt was continuing to make suicidal ideation statements and unwilling to further discuss safety planning or provide much information. Pt's life partner/caregiver was bedside and provided historical information to the MD. Pt has a hx of autism, developmental disability, seizure disorder, pain management issues. Life Partner stated that pt's triggers have been the life stressors of pt being reassessed to determine if she still meets criteria for receiving disability money and that s.o.'s mother recently moved in after having a fall and hip fx and they have been having to care for her. Pt's UDS was positive for benzos and opioids but pt was given medication by EMS and on arrival to ED and is prescribed pain medication at baseline. Pt has been medically cleared by poison control and her labs. DCR was called late at night on 01/25/20 to assess to determine if she meets involuntary criteria as pt continued to refuse to participate in safety planning or discussion and was continuing to be agitated and making suicidal comments. DCR detained pt but was unable to [facility] due to her medical hx of seizure disorder, DD dx, and no bed availability. UNDER SEAL OPERATOR spoke to ED MD this morning and pt was given Zyprexa early this morning and has been sleeping until now. Sig Other had stated that if pt wakes up and is calm and back to baseline then he would be alright with pt discharging home with him. MD plans to assess pt this morning and determine if UNDER SEAL OPERATOR needs to see or if DCR needs to be contacted for additional assessment. UNDER SEAL OPERATOR received a call from WILLARD Lorenzo ([phone]) and UNDER SEAL OPERATOR provided update and discussed the barriers to pt getting [facility] tx but Maura states that if pt still needs placement she will try [place] and [facility] since they are more medical than most Inpt hospitals. RONAN Lorenzo states that pt is not showing as having any MH hx of outpt or inpt mental health. Plan: UNDER SEAL OPERATOR to follow for MD bedside assess of pt when she wakes this morning towards determining if DCR needs to assess again today for Voluntary vs Involuntary placement or safety planning for home. RODOLFO Kellogg
--- NOTE | 2020-01-26 10:03 | PC.NURSE ---
RN CARE MANAGER/INTERACTIVE DIGITAL MEDIA SPECIALIST Note: Pt. remains asleep. awakes easily if needed.
--- NOTE | 2020-01-26 10:48 | PC.NURSE ---
PET WALKER/CHINCHILLA FARMER Note: pt. easily awaken with verbal stimuli. Pt. opened eyes, but pt non verbal. when Pt. was asked if need anything for example; water, snacks, and or use the restroom. Pt. was still non verbal. RN notified. @1050- Pt. significant other arrived and is at bedside with Pt. Pt. is awake and sitting up. Pt is semi verbal with significant other. RN Notified. @1110- Pt. got up to and tempted to used the restroom. Pt. still refused meal and snacks. Pt. significant asked as well. Pt stated I'm not eating or drinking anything they give me. They really hurt me. RN Notified. Tech reassured Pt. and the significant other that he is able to bring her food if wanted.
--- NOTE | 2020-01-26 11:48 | PC.NURSE ---
when pt was interviewed, pt still showing anger, responding yes i want to go home, but no eye contact
--- NOTE | 2020-01-26 12:19 | PC.NURSE ---
AIRCRAFT HYDRAULIC EQUIPMENT MECHANIC/MANAGER RETAIL SALES Note: Patient and significant other spoke with Kenzie for about 20mins. Pt. is agitated after CM left the room. Pt. is very tearful stating They hurt me. They treated me like a criminal. I haven't eaten for 2day. We have offered her some food. Pt. replied with Why don't you mind your own business. significant other is at bedside calming her down. RN notified.
[2020-01-26 12:30] VITALS: BP 120/64; PULSE 79; RESP 19; TEMP 37.2; O2SAT 99
--- NOTE | 2020-01-26 12:43 | ED_ITS ---
HPI - Psych General Chief Complaint: Psychiatric Symptoms Stated Complaint: took mouthful of tegretol Time Seen by Provider: 01/25/20 16:40 Source: patient, EMS and other (caregiver/boyfriend) Mode of arrival: EMS Related Data Home Medications Medication Instructions Recorded Confirmed Flax, Fish and Borage Oil 30 ml PO DAILY 01/25/20 01/25/20 Heart Remedy 30 ml PO DAILY 01/25/20 01/25/20 Lemon Fish Oil 30 ml PO DAILY 01/25/20 01/25/20 [place] Coconut Oil 30 ml PO DAILY 01/25/20 01/25/20 carbamazepine [Tegretol] 400 mg PO TID 01/25/20 01/25/20 diazepam [Valium] 5 mg PO TID 01/25/20 01/25/20 fentanyl 75 mcg TOPICAL Q48H 01/25/20 01/25/20 hydromorphone 4 mg PO Q4-6H PRN MDD 5 tab 01/25/20 01/25/20 multivitamin 10 ml PO DAILY 01/25/20 01/25/20 sodium chloride 1,000 mg PO DAILY 01/25/20 01/25/20 thyroid (pork) [[place] Thyroid] 30 mg PO DAILY 01/25/20 01/25/20 thyroid (pork) [[place] Thyroid] 60 mg PO DAILY 01/25/20 01/25/20 Allergies Allergy/AdvReac Type Severity Reaction Status Date / Time Haloperidol Allergy Unknown Uncoded 03/11/18 11:46 Phenobarbital Allergy Unknown Uncoded 03/11/18 11:46 Prochlorperazine Allergy Unknown Uncoded 03/11/18 11:46 Tetanus Toxoid Allergy Unknown Uncoded 03/11/18 11:46 Patient History Surgical History (Updated 01/25/20 @ 17:09 by Elo Salas DO) History of bariatric surgery (Acute) Exam Initial Vital Signs Initial Vital Signs: Vital Signs Temperature 98.9 F 01/25/20 16:59 Pulse Rate 126 H 01/25/20 16:59 Respiratory Rate 34 H 01/25/20 16:59 Blood Pressure 107/83 01/25/20 16:59 Pulse Oximetry 96 01/25/20 16:59 Course Orders Ordered: Discontinued Medications Diazepam (Valium) 5 mg IV NOW ONE Stop: 01/25/20 17:48 Last Admin: 01/25/20 17:59 Dose: 5 mg Documented by: CATHERINE Hydromorphone HCl (Dilaudid) 2 mg PO NOW ONE Stop: 01/25/20 22:52 Last Admin: 01/25/20 23:52 Dose: Not Given Documented by: SHERRY Sodium Chloride (Normal Saline 0.9%) 1,000 mls @ 1,000 mls/hr IV BOLUS ONE Stop: 01/25/20 17:46 Last Infusion: 01/25/20 19:41 Dose: 0 mls/hr Documented by: Admin: 01/25/20 16:58 Dose: 1,000 mls/hr Documented by: SHERRY Lorazepam (Ativan) 2 mg IV NOW ONE Stop: 01/25/20 16:50 Last Admin: 01/25/20 16:58 Dose: 2 mg Documented by: SHERRY Lorazepam (Ativan) 2 mg IV Q1HR PRN PRN Reason: Agitation Last Admin: 01/25/20 22:29 Dose: 2 mg Documented by: Admin: 01/25/20 18:14 Dose: 2 mg Documented by: CATHERINE Lorazepam (Ativan) 2 mg IM NOW ONE Stop: 01/26/20 00:52 Last Admin: 01/26/20 01:18 Dose: 2 mg Documented by: AMARILIS Olanzapine (Zyprexa) 10 mg IM NOW ONE Stop: 01/26/20 00:53 Last Admin: 01/26/20 01:15 Dose: 10 mg Documented by: AMARILIS Vital Signs Vital signs: Vital Signs - 8 hr 01/26/20 12:30 Temperature 98.9 F Pulse Rate 79 Respiratory Rate 19 Blood Pressure [Left Arm] 120/64 Pulse Oximetry 99 MDM - Psych Lab Data Result diagrams: 01/25/20 17:30 01/25/20 17:30 Labs: Lab Results 01/25/20 01/25/20 01/25/20 Range/Units 17:30 17:30 17:30 WBC 9.9 (4.5-11.0) X10^3/uL RBC 4.15 (4.0-5.2) X10^6/uL Hgb 13.2 (12.0-16.0) g/dL Hct 39.9 (36-46) % MCV 96.0 (80-100) fL MCH 31.7 (26-34) PG MCHC 33.0 (30-36) % RDW 13.1 (11.6-14.8) % Plt Count 336 (150-400) X10^3/uL Neut % (Auto) 32.3 L (50-75) % Lymph % (Auto) 53.5 H (25-40) % [place] % (Auto) 13.1 (3-14) % Eos % (Auto) 0.5 L (2-4) % Baso % (Auto) 0.6 (0-2) % Neut # (Auto) 3200 (6287-5554) /uL Lymph # (Auto) 5300 H (1739-7991) /uL [place] # (Auto) 1300 H (0-900) /uL Eos # (Auto) 100 (0-450) /uL Baso # (Auto) 100 (0-100) /uL PT 11.9 (10.1-12.7) SECONDS INR 1.0 (0.9-1.3) Sodium 133 L (137-145) mmol/L Potassium 4.2 (3.4-5.1) mmol/L Chloride 93 L (98-107) mmol/L Carbon Dioxide 22 (22-32) mmol/L BUN 4 L (7-17) mg/dL Creatinine 0.50 L (0.52-1.04) mg/dL Estimated GFR > 60.0 (>60) mL/min BUN/Creatinine Ratio 8.0 (6-22) Glucose 111 H (70-100) mg/dL Lactate (0.7-2.1) mmol/L Calcium 9.5 (8.4-10.2) mg/dL Total Bilirubin 0.4 (0.2-1.3) mg/dL Conjugated Bilirubin 0.0 (0.0-0.3) md/dL Unconjugated Bilirubin 0.3 (0.0-1.1) mg/dL AST 31 (14-36) IU/L ALT 21 (<35) IU/L Alkaline Phosphatase 85 (38-126) U/L Total Creatine Kinase 33 (30-135) U/L CK-MB (CK-2) TNP CK-MB (CK-2) Rel Index TNP Troponin I < 0.012 (0.01-0.034) ng/mL Total Protein 7.5 (6.3-8.2) g/dL Albumin 4.6 (3.5-5.0) g/dL Globulin 2.9 (1.7-4.1) g/dL Albumin/Globulin Ratio 1.6 (1.0-2.8) TSH (0.47-4.68) uIU/mL Urine Color Urine Appearance Urine pH (4.5-8.0) Ur Specific [place] (1.000-1.035) Urine Protein (Negative) Urine Glucose (UA) (Negative) g/dL Urine Ketones (NEGATIVE) Urine Occult Blood (Negative) Urine Nitrate (Negative) Urine Bilirubin (NEGATIVE) Urine Urobilinogen (0.2) E.U./dL Ur Leukocyte Esterase (NEGATIVE) Urine RBC (0-5/HPF) Urine WBC (0-5/HPF) Ur Squamous Epith Cells (0-5/HPF) Ur Transition Epith Cell (0-5/HPF) Amorphous Sediment Urine Bacteria (None) Ur Culture Indicated? Urine Test (Negative) Salicylates < 1.0 (<20) mg/dL U Opiates 300ng/mL cut (Negative) Ur Oxycodone Screen (Negative) Urine Methadone Screen (Negative) Acetaminophen < 10 L (10-30) ug/mL Ur Barbiturates Screen (Negative) Carbamazepine U Tricyclic Antidepress (Negative) Ur Phencyclidine Scrn (Negative) Ur Amphetamines Screen (Negative) U Methamphetamines Scrn (Negative) Ur MDMA Scrn (Ecstasy) (Negative) U Benzodiazepines Scrn (Negative) Urine Cocaine Screen (Negative) U Marijuana (THC) Screen (Negative) Ethyl Alcohol < 10 ( - 10) mg/dL Ref Test (Refrig) 01/25/20 01/25/20 01/25/20 Range/Units 17:30 17:30 18:30 WBC (4.5-11.0) X10^3/uL RBC (4.0-5.2) X10^6/uL Hgb (12.0-16.0) g/dL Hct (36-46) % MCV (80-100) fL MCH (26-34) PG MCHC (30-36) % RDW (11.6-14.8) % Plt Count (150-400) X10^3/uL Neut % (Auto) (50-75) % Lymph % (Auto) (25-40) % [place] % (Auto) (3-14) % Eos % (Auto) (2-4) % Baso % (Auto) (0-2) % Neut # (Auto) (1231-5461) /uL Lymph # (Auto) (3560-8078) /uL [place] # (Auto) (0-900) /uL Eos # (Auto) (0-450) /uL Baso # (Auto) (0-100) /uL PT (10.1-12.7) SECONDS INR (0.9-1.3) Sodium (137-145) mmol/L Potassium (3.4-5.1) mmol/L Chloride (98-107) mmol/L Carbon Dioxide (22-32) mmol/L BUN (7-17) mg/dL Creatinine (0.52-1.04) mg/dL Estimated GFR (>60) mL/min BUN/Creatinine Ratio (6-22) Glucose (70-100) mg/dL Lactate 2.8 H (0.7-2.1) mmol/L Calcium (8.4-10.2) mg/dL Total Bilirubin (0.2-1.3) mg/dL Conjugated Bilirubin (0.0-0.3) md/dL Unconjugated Bilirubin (0.0-1.1) mg/dL AST (14-36) IU/L ALT (<35) IU/L Alkaline Phosphatase (38-126) U/L Total Creatine Kinase (30-135) U/L CK-MB (CK-2) CK-MB (CK-2) Rel Index Troponin I (0.01-0.034) ng/mL Total Protein (6.3-8.2) g/dL Albumin (3.5-5.0) g/dL Globulin (1.7-4.1) g/dL Albumin/Globulin Ratio (1.0-2.8) TSH 1.31 (0.47-4.68) uIU/mL Urine Color Urine Appearance Urine pH (4.5-8.0) Ur Specific [place] (1.000-1.035) Urine Protein (Negative) Urine Glucose (UA) (Negative) g/dL Urine Ketones (NEGATIVE) Urine Occult Blood (Negative) Urine Nitrate (Negative) Urine Bilirubin (NEGATIVE) Urine Urobilinogen (0.2) E.U./dL Ur Leukocyte Esterase (NEGATIVE) Urine RBC (0-5/HPF) Urine WBC (0-5/HPF) Ur Squamous Epith Cells (0-5/HPF) Ur Transition Epith Cell (0-5/HPF) Amorphous Sediment Urine Bacteria (None) Ur Culture Indicated? Urine Test (Negative) Salicylates (<20) mg/dL U Opiates 300ng/mL cut (Negative) Ur Oxycodone Screen (Negative) Urine Methadone Screen (Negative) Acetaminophen (10-30) ug/mL Ur Barbiturates Screen (Negative) Carbamazepine Cancelled U Tricyclic Antidepress (Negative) Ur Phencyclidine Scrn (Negative) Ur Amphetamines Screen (Negative) U Methamphetamines Scrn (Negative) Ur MDMA Scrn (Ecstasy) (Negative) U Benzodiazepines Scrn (Negative) Urine Cocaine Screen (Negative) U Marijuana (THC) Screen (Negative) Ethyl Alcohol ( - 10) mg/dL Ref Test (Refrig) . 01/25/20 01/25/20 01/25/20 Range/Units 20:20 20:20 20:20 WBC (4.5-11.0) X10^3/uL RBC (4.0-5.2) X10^6/uL Hgb (12.0-16.0) g/dL Hct (36-46) % MCV (80-100) fL MCH (26-34) PG MCHC (30-36) % RDW (11.6-14.8) % Plt Count (150-400) X10^3/uL Neut % (Auto) (50-75) % Lymph % (Auto) (25-40) % [place] % (Auto) (3-14) % Eos % (Auto) (2-4) % Baso % (Auto) (0-2) % Neut # (Auto) (4520-0841) /uL Lymph # (Auto) (6567-0791) /uL [place] # (Auto) (0-900) /uL Eos # (Auto) (0-450) /uL Baso # (Auto) (0-100) /uL PT (10.1-12.7) SECONDS INR (0.9-1.3) Sodium (137-145) mmol/L Potassium (3.4-5.1) mmol/L Chloride (98-107) mmol/L Carbon Dioxide (22-32) mmol/L BUN (7-17) mg/dL Creatinine (0.52-1.04) mg/dL Estimated GFR (>60) mL/min BUN/Creatinine Ratio (6-22) Glucose (70-100) mg/dL Lactate (0.7-2.1) mmol/L Calcium (8.4-10.2) mg/dL Total Bilirubin (0.2-1.3) mg/dL Conjugated Bilirubin (0.0-0.3) md/dL Unconjugated Bilirubin (0.0-1.1) mg/dL AST (14-36) IU/L ALT (<35) IU/L Alkaline Phosphatase (38-126) U/L Total Creatine Kinase (30-135) U/L CK-MB (CK-2) CK-MB (CK-2) Rel Index Troponin I (0.01-0.034) ng/mL Total Protein (6.3-8.2) g/dL Albumin (3.5-5.0) g/dL Globulin (1.7-4.1) g/dL Albumin/Globulin Ratio (1.0-2.8) TSH (0.47-4.68) uIU/mL Urine Color Yellow Urine Appearance Cloudy Urine pH 7.0 (4.5-8.0) Ur Specific [place] 1.020 (1.000-1.035) Urine Protein Negative (Negative) Urine Glucose (UA) Negative (Negative) g/dL Urine Ketones 1+ H (NEGATIVE) Urine Occult Blood Negative (Negative) Urine Nitrate Negative (Negative) Urine Bilirubin Negative (NEGATIVE) Urine Urobilinogen 0.2 (0.2) E.U./dL Ur Leukocyte Esterase Negative (NEGATIVE) Urine RBC 0-1/hpf (0-5/HPF) Urine WBC 0-1/hpf (0-5/HPF) Ur Squamous Epith Cells 10-30 /hpf H (0-5/HPF) Ur Transition Epith Cell 5-10/hpf H (0-5/HPF) Amorphous Sediment 1+ Urine Bacteria Moderate (10-30) H (None) Ur Culture Indicated? Cult not indicated Urine Test Negative (Negative) Salicylates (<20) mg/dL U Opiates 300ng/mL cut Positive H (Negative) Ur Oxycodone Screen Negative (Negative) Urine Methadone Screen Negative (Negative) Acetaminophen (10-30) ug/mL Ur Barbiturates Screen Negative (Negative) Carbamazepine U Tricyclic Antidepress Negative (Negative) Ur Phencyclidine Scrn Negative (Negative) Ur Amphetamines Screen Negative (Negative) U Methamphetamines Scrn Negative (Negative) Ur MDMA Scrn (Ecstasy) Negative (Negative) U Benzodiazepines Scrn Positive H (Negative) Urine Cocaine Screen Negative (Negative) U Marijuana (THC) Screen Positive H (Negative) Ethyl Alcohol ( - 10) mg/dL Ref Test (Refrig) 01/25/20 Range/Units 21:07 WBC (4.5-11.0) X10^3/uL RBC (4.0-5.2) X10^6/uL Hgb (12.0-16.0) g/dL Hct (36-46) % MCV (80-100) fL MCH (26-34) PG MCHC (30-36) % RDW (11.6-14.8) % Plt Count (150-400) X10^3/uL Neut % (Auto) (50-75) % Lymph % (Auto) (25-40) % [place] % (Auto) (3-14) % Eos % (Auto) (2-4) % Baso % (Auto) (0-2) % Neut # (Auto) (0273-3146) /uL Lymph # (Auto) (2751-3478) /uL [place] # (Auto) (0-900) /uL Eos # (Auto) (0-450) /uL Baso # (Auto) (0-100) /uL PT (10.1-12.7) SECONDS INR (0.9-1.3) Sodium (137-145) mmol/L Potassium (3.4-5.1) mmol/L Chloride (98-107) mmol/L Carbon Dioxide (22-32) mmol/L BUN (7-17) mg/dL Creatinine (0.52-1.04) mg/dL Estimated GFR (>60) mL/min BUN/Creatinine Ratio (6-22) Glucose (70-100) mg/dL Lactate 0.8 (0.7-2.1) mmol/L Calcium (8.4-10.2) mg/dL Total Bilirubin (0.2-1.3) mg/dL Conjugated Bilirubin (0.0-0.3) md/dL Unconjugated Bilirubin (0.0-1.1) mg/dL AST (14-36) IU/L ALT (<35) IU/L Alkaline Phosphatase (38-126) U/L Total Creatine Kinase (30-135) U/L CK-MB (CK-2) CK-MB (CK-2) Rel Index Troponin I (0.01-0.034) ng/mL Total Protein (6.3-8.2) g/dL Albumin (3.5-5.0) g/dL Globulin (1.7-4.1) g/dL Albumin/Globulin Ratio (1.0-2.8) TSH (0.47-4.68) uIU/mL Urine Color Urine Appearance Urine pH (4.5-8.0) Ur Specific [place] (1.000-1.035) Urine Protein (Negative) Urine Glucose (UA) (Negative) g/dL Urine Ketones (NEGATIVE) Urine Occult Blood (Negative) Urine Nitrate (Negative) Urine Bilirubin (NEGATIVE) Urine Urobilinogen (0.2) E.U./dL Ur Leukocyte Esterase (NEGATIVE) Urine RBC (0-5/HPF) Urine WBC (0-5/HPF) Ur Squamous Epith Cells (0-5/HPF) Ur Transition Epith Cell (0-5/HPF) Amorphous Sediment Urine Bacteria (None) Ur Culture Indicated? Urine Test (Negative) Salicylates (<20) mg/dL U Opiates 300ng/mL cut (Negative) Ur Oxycodone Screen (Negative) Urine Methadone Screen (Negative) Acetaminophen (10-30) ug/mL Ur Barbiturates Screen (Negative) Carbamazepine U Tricyclic Antidepress (Negative) Ur Phencyclidine Scrn (Negative) Ur Amphetamines Screen (Negative) U Methamphetamines Scrn (Negative) Ur MDMA Scrn (Ecstasy) (Negative) U Benzodiazepines Scrn (Negative) Urine Cocaine Screen (Negative) U Marijuana (THC) Screen (Negative) Ethyl Alcohol ( - 10) mg/dL Ref Test (Refrig) Discharge Plan Departure Patient Disposition: Home Clinical Impression: Intentional overdose of drug in tablet form Discharge Date/Time: 01/26/20 13:05 Instructions: DI for Drug Overdose in Adults Activity Restrictions/Additional Instructions: Follow up with your phone evaluation at 1pm today. Continue to use the resources given to by the [facility] and addiction social worker. If you're feeling suicidal or having suicidal thoughts, contact the suicide hotline (this is also the resource for [facility] and they do same day and phone follow-up appointments and have additional mental health resources available) . Return at any time for suicidal thoughts, intent or thoughts to harm yourself, altered mental status, agitated or aggressive or agitated behavior that is unsafe, persistent vomiting, new weakness numbness or other new or concerning symptoms. Prescriptions: No Action carbamazepine [Tegretol] 200 mg tablet 400 mg PO TID RF: 0 hydromorphone 4 mg tablet 4 mg PO Q4-6H MDD 5 tab PRN (Reason: pain) RF: 0 fentanyl 75 mcg/hr patch 72 hour 75 mcg topical Q48H RF: 0 diazepam [Valium] 5 mg tablet 5 mg PO TID RF: 0 thyroid (pork) [[place] Thyroid] 15 mg tablet 30 mg PO DAILY RF: 0 thyroid (pork) [[place] Thyroid] 60 mg tablet 60 mg PO DAILY RF: 0 multivitamin Liquid 10 ml PO DAILY RF: 0 sodium chloride 1 gram Tablet 1,000 mg PO DAILY RF: 0 Flax, Fish and Borage Oil 30 ml PO DAILY RF: 0 Heart Remedy 30 ml PO DAILY RF: 0 [place] Fish Oil 30 ml PO DAILY RF: 0 [place] Coconut Oil 30 ml PO DAILY RF: 0 Referrals: Daniela Valadez [Primary Care Provider] -
--- NOTE | 2020-01-26 13:04 | CM.SWNOTE ---
SW to follow for final bedside assessment from RONAN Lorenzo to confirm if least restrictive plan of home with outpt Psychologist appointment is reasonable. RONAN Lorenzo currently bedside as of 1300. Discharge Planning/Care Management ED Mental Health Evaluation Status Start: 01/25/20 17:10 Freq: Status: Active Protocol: Document 01/25/20 23:34 KEB (Rec: 01/25/20 23:34 KEB [id number]) Mental Health Evaluation Status Mental Health Evaluation Status Pending 01/25/20 23:34 Nurse Note by Jaimee Torre called to come see patient at this time. patient is medically cleared. Initialized on 01/25/20 23:34 - END OF NOTE Document 01/25/20 23:45 KEB (Rec: 01/25/20 23:45 KEB [id number]) Mental Health Evaluation Status Mental Health Evaluation Status Pending Date 01/26/20 Approximate Time of Arrival 00:45 CDMHP Name Victor Manuel Document 01/26/20 08:08 MME (Rec: 01/26/20 08:08 MME [id number]) Mental Health Evaluation Status Mental Health Evaluation Status Pending ED Psychiatric Symptoms Assessment Start: 01/25/20 17:10 Freq: Status: Active Protocol: Document 01/25/20 17:13 KEB (Rec: 01/25/20 17:16 KEB [id number]) Psychiatric Symptoms Assessment Symptoms/Complaint Suicidal Ideation Onset today History Of Same Yes Context Significant Life Stressor Associated Psychiatric Symptoms Suicidal Ideation If Self Harm Admits Thoughts of Self Harm, Has Acted on Plan,Intentional Overdose Details of Plan Patient very agitated, repeating over and over her plan of killing herself. Upset because she was interupted in act of overdosing on medication. Level of Consciousness Alert,Awake,Combative, Inappropriate Patient Orientation Name,Age,Birthday,Month,Date, Year,Day of Week,Place, Situation Patient Behavior/Mood Aggressive,Belligerent, Combative,Impulsive,Labile, Restless,Uncooperative Ability to Follow Directions Poor Patient Cognition Impaired Yes Affect Description Anxious,Hostile,Labile Patient Appearance Unkempt,Disheveled Hallucination Type None Suicidal Ideation Frequent,Constant Suicide Plan Clear,Organized,Specific Homicidal Ideation None Nausea/Vomiting None Document 01/25/20 19:12 KEB (Rec: 01/25/20 21:54 KEB [id number]) Psychiatric Symptoms Assessment Symptoms/Complaint Suicidal Ideation Duration Constant History Of Same Yes Associated Psychiatric Symptoms Suicidal Ideation If Self Harm Has Acted on Plan,Intentional Overdose Details of Plan Took handful of tegretol in attempt to end life. Level of Consciousness Alert,Awake,Combative Patient Orientation Name,Age,Birthday,Month,Date, Year,Day of Week,Place, Situation Patient Behavior/Mood Belligerent,Combative, Impulsive,Labile,Uncooperative Ability to Follow Directions Poor Patient Cognition Impaired Yes Affect Description Hostile,Labile Patient Appearance Unkempt,Disheveled Hallucination Type None Delusion Description Not Present Suicidal Ideation Vague,Frequent Suicide Plan Clear,Organized,Specific, Feasible Document 01/25/20 21:10 KEB (Rec: 01/25/20 21:51 [facility] [id number]) Psychiatric Symptoms Assessment Symptoms/Complaint Suicidal Ideation Duration Constant History Of Same Yes If Self Harm Has Acted on Plan,Intentional Overdose Details of Plan Patient attempted overdose with handful of tegretol ingested. Level of Consciousness Appropriate,Sedated Patient Orientation Name,Age,Birthday,Month,Date, Year,Day of Week,Place, Situation Patient Behavior/Mood Asleep,Cooperative,Normal for Patient Ability to Follow Directions Good Patient Cognition Impaired No Affect Description Calm Patient Appearance Unkempt,Disheveled Hallucination Type None Suicidal Ideation Vague,Frequent Suicide Plan Clear,Organized,Specific, Feasible Homicidal Ideation None Document 01/25/20 23:00 KEB (Rec: 01/26/20 00:01 [facility] [id number]) Psychiatric Symptoms Assessment Symptoms/Complaint Suicidal Ideation Duration Constant History Of Same Yes Associated Symptoms Denies Other Symptoms If Self Harm Has Acted on Plan,Intentional Overdose Details of Plan Acted on plan of overdose with tegretol. Level of Consciousness Alert,Awake,Combative, Inappropriate Patient Orientation Name,Age,Birthday,Month,Date, Year,Day of Week,Place, Situation Patient Behavior/Mood Aggressive,Belligerent, Combative,Impulsive,Labile, Uncooperative Ability to Follow Directions Poor Patient Cognition Impaired Yes Affect Description Hostile,Labile Patient Appearance Unkempt,Disheveled Hallucination Type None Thought Process: Illogical Suicidal Ideation Frequent Suicide Plan Clear,Organized,Specific, Feasible Homicidal Ideation None Nausea/Vomiting None Document 01/26/20 01:00 MM (Rec: 01/26/20 01:50 MM [id number]) Psychiatric Symptoms Assessment Symptoms/Complaint Suicidal Ideation Duration Constant History Of Same Yes Associated Symptoms Denies Other Symptoms If Self Harm Admits Thoughts of Self Harm, Has Acted on Plan,Intentional Overdose Details of Plan Acted on plan of overdose with tegretol. Level of Consciousness Alert,Awake,Combative, Inappropriate Patient Behavior/Mood Aggressive,Anxious,Belligerent ,Combative,Impulsive,Labile, Talkative,Uncooperative Ability to Follow Directions Poor Patient Cognition Impaired Yes Affect Description Hostile,Labile Patient Appearance Unkempt,Disheveled Hallucination Type None Thought Process: Illogical Depressive Symptoms Recurrent Thoughts of or Suicide,Unhappiness Suicidal Ideation Frequent Suicide Plan Clear,Organized,Specific, Feasible Nausea/Vomiting None Document 01/26/20 03:00 MM (Rec: 01/26/20 03:22 MM [id number]) Psychiatric Symptoms Assessment Symptoms/Complaint Suicidal Ideation Duration Constant History Of Same Yes Associated Symptoms Denies Other Symptoms If Self Harm Admits Thoughts of Self Harm, Has Acted on Plan,Intentional Overdose Details of Plan Acted on plan of overdose with tegretol. Patient Behavior/Mood Asleep Affect Description Calm,Relaxed Patient Appearance Unkempt,Disheveled Hallucination Type None Nausea/Vomiting None Document 01/26/20 05:00 MM (Rec: 01/26/20 05:12 MM [id number]) Psychiatric Symptoms Assessment Symptoms/Complaint Suicidal Ideation Duration Changing Over Time History Of Same Yes Associated Psychiatric Symptoms Suicidal Ideation If Self Harm Admits Thoughts of Self Harm, Has Acted on Plan,Has Plans, Intentional Overdose Details of Plan Acted on plan of overdose with tegretol. Patient Behavior/Mood Asleep Affect Description Calm,Relaxed Patient Appearance Unkempt,Disheveled Hallucination Type None Nausea/Vomiting None Document 01/26/20 08:08 MME (Rec: 01/26/20 08:10 MME [id number]) Psychiatric Symptoms Assessment Symptoms/Complaint Feels Depressed History Of Same Yes Context Significant Life Stressor Details of Plan pt non verbal and doesnt responds to questions. eyes open and staring at the ceiling Level of Consciousness Awake Affect Description Calm Hallucination Type None Nausea/Vomiting None SCHOOL SUPERINTENDENT - [employer] Assessment Start: 01/26/20 12:43 Freq: Status: Active Protocol: Document 01/26/20 12:30 BF (Rec: 01/26/20 13:04 BF [id number]) SCHOOL SUPERINTENDENT/[employer] Assessment Start date 01/26/20 Visit Start Time 11:30 End date 01/26/20 Visit End Time 12:30 Total time Care Management spent on 120 min patient visit-in minutes Presenting Problem Suicidal ideation with attempt of ingestion of medication overdose Precipitating Event(s) Life stressors. Possible loss of disability payments and coverage and sig other mother moving in with them and requiring caregiving as well. Current Behavioral Health Provider(s) Psychologist Dr. Butcher at [facility], Provider, Ph. # [facility] behavioral Psychiatric Hospitalizations (date(s)/ One Inpt stay at [facility] [place] Behavioral Health after a medication change and was only admitted for one night for stabilization and discharged home Support System(s) Sig Other of 30 years, Oziel, who is pt's primary informal caregiver and they live together School/Work Denies Legal Matters - Outstanding Issues Denies beyond pt currently fighting to keep her social security disability Orientation (Person/Place/Time) Oriented x3 Affect Angry, frustrated, irritated Thought Content - Specify/Describe Pt stuck on her belief that Obsessions, Delusions, Hallucinations she was mistreated by hospital staff due to needing to be in restraints and given medication management from her aggressive behaviors and being uncooperative Thought Processes ([place]-Gaji Somewhat disorganized but able Piukyleg-Vxltqknl-Iuoihelkls- to be redirected Xknnufvecpevbf-Gaytyjy-Gkzoanqtghtp- Thought Blocking) Speech (Rgwhif-Qjgu-Ixolczh-Rapid-Soft- Speech is slow but pressured Loud-Pressured) Motor (Ntkfqq-Uirwurasj-Uicd-Other) Normal Insight (Present-Partially Present- Insight is partially present, Impaired) having difficulty thinking halfway or willing to discuss consequences, may also be hindered due to developmental disability Judgement (Intact-Impaired) Judgement is impaired, may be due to her developmental disability. Memory (Pgzudhkgk-Kvvabp-Kyqnpv, Memory appears intact Impaired-Intact) Concentration (Intact-Impaired) Concentration is intact Behavior (Appropriate-Inappropriate) Behavior is somewhat angry and frustrated as pt does not want to be at [facility] and feels that she has been mistreated by the system. Behavior is congruent with her verbal frustrations. Additional Comment Pt's dx of epilepsy, disability, etc. may be contributing factors to pt's ability to display adequate safety planning and processing . Suicidal Ideation (Plan) No: Currently denying now after being admitted overnight Homicidal Ideation (Plan) No Intervention SCHOOL SUPERINTENDENT called [facility] and confirmed that Maura is the assigned DCR who was planning to [facility] to determine if any open beds or if any would be willing to consider pt due to her barriers of seizure do, DD. SCHOOL SUPERINTENDENT spoke to Maura who states she has not been able to identify an accepting facility for Involuntary placement and can do bedside assessment if needed but requesting SCHOOL SUPERINTENDENT to do bedside MH assessment on pt . RA Plan SCHOOL SUPERINTENDENT met bedside with pt and Life Partner Oziel and explained role and pt did not make eye contact with SCHOOL SUPERINTENDENT but did participate in discussion although states she is angry and frustrated with hospital staff stating she feels that she was treated poorly. Pt denies suicidal ideation or plan now that she slept and was admitted overnight and states why would I do that again, I'd just end up back i the hospital and its horrible here. Pt denies any need for Inpt MH tx and requesting to go home with Sig Other. Sig Other Oziel states that he has been with pt for 30 years and feels that pt will de- escalate and stabilize better at home and they have a standing appointment with their Psychologist Dr. Butcher at [facility] every Fri and can do Telehealth today with likely ability to see Psychologist in person tomorrow. SW discussed [facility]/ [facility] outreach team as an option if things escalate at home. S.O. Oziel was able to help pt identify their current life stressors and ways to safety plan with keeping medications out of pt's reach and contacting Dr. Butcher. No identified close friends or family at this time as S.O. states our family doesn't live here and usually are not helpful, they just want help from us. SCHOOL SUPERINTENDENT feels that due to lack of accepting [facility] due to pt's chronic baseline dx and pt/Sig Other ability to identify a plan for return to home that pt does not need to be detained and least restrictive alternative can be identified and pt could safely d/c to the community with established Psychologist support. SCHOOL SUPERINTENDENT updated MD and RN and DCR Maura now bedside and completing final assessment to confirm that pt does not meet criteria for Involuntary Placement (although no facility willing to accept anyways).
== END 2020-01-26 13:05 | disposition home or self-care (01) ==
PROVIDERS: Emergency Provider Emergency Medicine; PCP Internal Medicine
DX: T42.1X2A Poisoning by iminostilbenes, intentional self-harm, initial encounter (principal)
CPT/HCPCS: 36415; 71045; 80053; 80076; 80156; 80305; 80320; 80329; 81001; 81025; 82550; 83605; 84443; 84484; 85025; 85610; 93005; 96361; 96372; 96374; 96375; 96376; 99285; G0480; J2060; J3360; S0166

== ENCOUNTER 2024-05-31 05:12 | Emergency (ER) | payer MEDICARE, MEDICAID, SELFPAY ==
[2024-05-31] VITALS (13 sets, daily range): BP systolic 108–123; BP diastolic 58–66; PULSE 70–78; RESP 13–22; TEMP 36.2; O2SAT 99–100
--- NOTE | 2024-05-31 05:44 | ED.SEIZURE ---
HPI - Seizure <Ramon Duncan MD - Last Filed: 06/01/24 09:45> General Chief Complaint: Seizure Stated Complaint: seizure Time Seen by Provider: 05/31/24 05:26 Source: EMS Mode of arrival: EMS Limitations: no limitations History of Present Illness HPI Narrative: (history via patient's nurse caregiver shortly after arrival by EMS to ED) 48-year-old female with history of ?idiopathic epilepsy? diagnosed in the at [facility], have seen various epilepsy specialists in the past, most recently followed by Neurology Dr. Fontana at [facility], still having fairly frequent seizures, usually not sustained or in clusters, per caregiver nurse at bedside who administers her medications there have been no missed doses of antiseizure medications, taking same most recent regimen of Tegretol and Valium, noted this evening to have brief tonic-clonic typical seizure activity, but more frequent events. No injury or trauma. No fevers or chills. Also noted from prior visits she has history of Asperger's, autism, hyponatremia, SIADH, hypothyroidism. She apparently has had outbursts in anger when she comes out of seizures in the past. Related Data Home Medications Medication Instructions Recorded Confirmed Flax, Fish and Borage Oil 30 ml PO DAILY 01/25/20 01/25/20 Heart Remedy 30 ml PO DAILY 01/25/20 01/25/20 Lemon Fish Oil 30 ml PO DAILY 01/25/20 01/25/20 [place] Coconut Oil 30 ml PO DAILY 01/25/20 01/25/20 carbamazepine 200 mg tablet 400 mg PO TID 01/25/20 01/25/20 (Tegretol) diazepam 5 mg tablet (Valium) 5 mg PO TID 01/25/20 01/25/20 fentanyl 75 mcg/hr transdermal 75 mcg topical Q48H 01/25/20 01/25/20 patch hydromorphone 4 mg tablet 4 mg PO Q4-6H PRN pain 01/25/20 01/25/20 multivitamin 10 ml PO DAILY 01/25/20 01/25/20 sodium chloride 1 gram tablet 1,000 mg PO DAILY 01/25/20 01/25/20 thyroid (pork) 15 mg tablet 30 mg PO DAILY 01/25/20 01/25/20 ([place] Thyroid) thyroid (pork) 60 mg tablet 60 mg PO DAILY 01/25/20 01/25/20 ([place] Thyroid) Allergies Allergy/AdvReac Type Severity Reaction Status Date / Time Haloperidol Allergy Unknown Uncoded 03/11/18 11:46 Phenobarbital Allergy Unknown Uncoded 03/11/18 11:46 Prochlorperazine Allergy Unknown Uncoded 03/11/18 11:46 Tetanus Toxoid Allergy Unknown Uncoded 03/11/18 11:46 Review of Systems <Ramon Duncan MD - Last Filed: 06/01/24 09:45> Review of Systems Narrative: As per HPI Patient History <Ramon Duncan MD - Last Filed: 06/01/24 09:45> Surgical History (Updated 01/25/20 @ 17:09 by Elo Salas DO) History of bariatric surgery Exam <Ramon Duncan MD - Last Filed: 06/01/24 09:45> Narrative Exam Narrative: GENERAL: Well-developed patient, altered mental status, possibly postictal HEAD: Atraumatic. Normocephalic. EYES: Pupils equal round and reactive. Extraocular motions intact. No scleral icterus. No injection or drainage. ENT: Nose without bleeding, purulent drainage. Throat without erythema, tonsillar hypertrophy or exudate. Airway patent. NECK: Trachea midline. Non tender CARDIOVASCULAR: Regular rate and rhythm without murmurs, gallops, or rubs. RESPIRATORY: Clear to auscultation. Breath sounds equal bilaterally. No wheezes, rales, or rhonchi. GASTROINTESTINAL: Abdomen soft, non-tender, nondistended. EXTREMITIES: No edema or joint tenderness. BACK: Nontender without deformity or crepitance. No flank tenderness. NEURO: Altered mental status, moves arms and legs but not to command, looks around, not speaking. No posturing. No rigidity. No facial droop, Pupils equal and round and reactive, did not cooperate with EOMI but conjugate gaze noted, not cooperative with finger to nose testing. SKIN: No rash or erythema of visible areas Initial Vital Signs Initial Vital Signs: Vital Signs Temperature 97.1 F L 05/31/24 05:14 Pulse Rate 77 05/31/24 05:14 Respiratory Rate 22 05/31/24 05:14 Blood Pressure 123/65 05/31/24 05:14 Pulse Oximetry 99 05/31/24 05:14 Oxygen Delivery Method Room Air 07/01/24 05:14 <Chana Acharya MD - Last Filed: 05/31/24 10:04> Initial Vital Signs Initial Vital Signs: Vital Signs Temperature 97.1 F L 05/31/24 05:14 Pulse Rate 77 05/31/24 05:14 Respiratory Rate 22 05/31/24 05:14 Blood Pressure 123/65 05/31/24 05:14 Pulse Oximetry 99 05/31/24 05:14 Oxygen Delivery Method Room Air 05/31/24 05:14 Course <Ramon Duncan MD - Last Filed: 06/01/24 09:45> Orders Ordered: Discontinued Medications Diazepam (Diazepam 10 Mg/2 Ml Syringe) 5 mg IV NOW ONE Stop: 05/31/24 05:51 Last Admin: 05/31/24 05:53 Dose: 5 mg Documented By: ABI Diazepam (Diazepam 10 Mg/2 Ml Syringe) 5 mg IV 1200 ONE Stop: 05/31/24 12:01 Diazepam (Diazepam 10 Mg/2 Ml Syringe) 5 mg IV NOW ONE Stop: 05/31/24 10:04 Last Admin: 05/31/24 10:04 Dose: 5 mg Documented By: LORNA Fentanyl (Fentanyl 75 Mcg/Patch) 75 mcg TOP NOW ONE Stop: 05/31/24 09:16 Last Admin: 05/31/24 10:04 Dose: 75 mcg Documented By: LORNA Sodium Chloride (Normal Saline 0.9%) 1,000 mls @ 150 mls/hr IV CONT MARIPOSA Last Infusion: 05/31/24 10:00 Dose: 0 mls/hr Documented By: Admin: 05/31/24 05:55 Dose: 150 mls/hr Documented By: ABI Sodium Chloride (Hypertonic Saline 3%) 100 mls @ 600 mls/hr IV NOW ONE Stop: 05/31/24 09:05 Last Infusion: 05/31/24 10:15 Dose: Infused Documented By: Admin: 05/31/24 09:22 Dose: 600 mls/hr Documented By: LORNA Lorazepam (Lorazepam 2 Mg/Ml Inj) 2 mg IV NOW ONE Stop: 05/31/24 05:46 Last Admin: 05/31/24 05:53 Dose: Not Given Documented By: ABI Vital Signs Vital signs: Vital Signs - 8 hr 05/31/24 05:14 05/31/24 05:36 05/31/24 06:00 Temperature 97.1 F L Pulse Rate 77 74 77 Respiratory Rate 22 16 Blood Pressure 123/65 Pulse Oximetry 99 99 Oxygen Delivery Method Room Air 05/31/24 06:30 05/31/24 07:00 05/31/24 07:30 Temperature Pulse Rate 74 75 75 Respiratory Rate 13 Blood Pressure Pulse Oximetry 100 100 100 Oxygen Delivery Method 05/31/24 07:44 05/31/24 07:44 05/31/24 08:00 Temperature Pulse Rate 78 76 Respiratory Rate Blood Pressure 111/63 Pulse Oximetry 99 100 Oxygen Delivery Method 05/31/24 08:00 05/31/24 08:30 05/31/24 08:30 Temperature Pulse Rate 73 Respiratory Rate Blood Pressure 111/66 109/62 Pulse Oximetry 100 Oxygen Delivery Method <Chana Acharya MD - Last Filed: 05/31/24 10:04> Orders Ordered: Discontinued Medications Diazepam (Diazepam 10 Mg/2 Ml Syringe) 5 mg IV NOW ONE Stop: 05/31/24 05:51 Last Admin: 05/31/24 05:53 Dose: 5 mg Documented By: ABI Diazepam (Diazepam 10 Mg/2 Ml Syringe) 5 mg IV 1200 ONE Stop: 05/31/24 12:01 Diazepam (Diazepam 10 Mg/2 Ml Syringe) 5 mg IV NOW ONE Stop: 05/31/24 10:04 Last Admin: 05/31/24 10:04 Dose: 5 mg Documented By: LORNA Fentanyl (Fentanyl 75 Mcg/Patch) 75 mcg TOP NOW ONE Stop: 05/31/24 09:16 Last Admin: 05/31/24 10:04 Dose: 75 mcg Documented By: LORNA Sodium Chloride (Normal Saline 0.9%) 1,000 mls @ 150 mls/hr IV CONT MARIPOSA Last Infusion: 05/31/24 10:00 Dose: 0 mls/hr Documented By: Admin: 05/31/24 05:55 Dose: 150 mls/hr Documented By: ABI Sodium Chloride (Hypertonic Saline 3%) 100 mls @ 600 mls/hr IV NOW ONE Stop: 05/31/24 09:05 Last Infusion: 05/31/24 10:15 Dose: Infused Documented By: Admin: 05/31/24 09:22 Dose: 600 mls/hr Documented By: LORNA Lorazepam (Lorazepam 2 Mg/Ml Inj) 2 mg IV NOW ONE Stop: 05/31/24 05:46 Last Admin: 05/31/24 05:53 Dose: Not Given Documented By: ABI Vital Signs Vital signs: Vital Signs - 8 hr 05/31/24 05:14 05/31/24 05:36 05/31/24 06:00 Temperature 97.1 F L Pulse Rate 77 74 77 Respiratory Rate 22 16 Blood Pressure 123/65 Pulse Oximetry 99 99 Oxygen Delivery Method Room Air 05/31/24 06:30 05/31/24 07:00 05/31/24 07:30 Temperature Pulse Rate 74 75 75 Respiratory Rate 13 Blood Pressure Pulse Oximetry 100 100 100 Oxygen Delivery Method 05/31/24 07:44 05/31/24 07:44 05/31/24 08:00 Temperature Pulse Rate 78 76 Respiratory Rate Blood Pressure 111/63 Pulse Oximetry 99 100 Oxygen Delivery Method 05/31/24 08:00 05/31/24 08:30 05/31/24 08:30 Temperature Pulse Rate 73 Respiratory Rate Blood Pressure 111/66 109/62 Pulse Oximetry 100 Oxygen Delivery Method MDM - Seizure <Ramon Duncan MD - Last Filed: 06/01/24 09:45> Differential Diagnosis Differential diagnosis: Likely intractable seizure disorder, generalized seizure, status epilepticus and other Lab Data Attestation: I reviewed the patient's lab results. 05/31/24 05:30 05/31/24 07:30 Labs: Lab Results 05/31/24 05/31/24 05/31/24 Range/Units 05:30 07:30 08:15 WBC 12.0 H (4.5-11.0) X10^3/uL RBC 3.96 L (4.0-5.2) X10^6/uL Hgb 12.9 (12.0-16.0) g/dL Hct 37.2 (36-46) % MCV 94.1 (80-100) fL MCH 32.5 (26-34) PG MCHC 34.6 (30-36) % RDW 12.7 (11.6-14.8) % Plt Count 310 (150-400) X10^3/uL Neut % (Auto) 86.3 H (50-75) % Lymph % (Auto) 6.1 L (25-40) % [place] % (Auto) 7.4 (3-14) % Eos % (Auto) 0.0 L (2-4) % Baso % (Auto) 0.2 (0-2) % Neut # (Auto) 08608 H (2584-7017) /uL Lymph # (Auto) 700 L (3078-5778) /uL [place] # (Auto) 900 (0-900) /uL Eos # (Auto) 0 (0-450) /uL Baso # (Auto) 0 (0-100) /uL Sodium 107 L* 109 L* (137-145) mmol/L Potassium 4.0 (3.4-5.1) mmol/L Chloride 75 L* (98-107) mmol/L Carbon Dioxide 20 L (22-32) mmol/L BUN 2 L (7-17) mg/dL Creatinine 0.32 L (0.52-1.04) mg/dL Estimated GFR > 60 (>60) mL/min BUN/Creatinine Ratio 6.3 (6-22) Glucose 90 (70-100) mg/dL Lactate 5.8 H* 2.9 H (0.7-2.1) mmol/L Calcium 8.0 L (8.4-10.2) mg/dL Total Bilirubin 0.6 (0.2-1.3) mg/dL AST 40 H (14-36) IU/L ALT 28 (<35) IU/L Alkaline Phosphatase 71 (38-126) U/L Total Protein 6.6 (6.3-8.2) g/dL Albumin 4.1 (3.5-5.0) g/dL Globulin 2.5 (1.7-4.1) g/dL Albumin/Globulin Ratio 1.6 (1.0-2.8) Prolactin 17.5 (3.0-18.6) ng/mL Ur Random Sodium 6 L (30-90) mmol/L Carbamazepine 7.7 (4.0-12.0) ug/mL Ethyl Alcohol < 10 ( - 10) mg/dL Point of Care Testing Glucose POC 121 MDM Narrative Medical decision making narrative: 48-year-old female with history of Asperger's autism, seizure disorder, followed by Neurology at [facility], SIADH, hyponatremia, most recent anti-seizure regimen of Tegretol and Valium, regular breakthru seizures, with more frequent seizures through the night last night, initially on arrival altered mental status possibly postictal, then had tonic-clonic shaking activity in the emergency department, IV Valium 5 mg given, seizure activity stopped. Labs pending including Tegretol level. No obvious trauma. Afebrile on triage. Caregiver nurse historian now at bedside for history. No further seizure activity after IV Valium dose. Tegretol level pending. BMP shows low sodium 107, history of hyponatremia and SIADH noted. Patient has received normal saline thus far for initial elevated lactate. No ICU beds, likely will need transfer, signed out to oncoming ED shift physician Dr. Acharya Data collected from: Caregiver. He notes that they do have a cautery of providers majority of whom were at [facility]. There [place] neurologist manages the Tegretol but otherwise has minimal involvement with the care. Medical records reviewed: Only immediate records are an ER visit in 2019. Patient does have a history of prior hyponatremia and SIADH. Prior bariatric surgery. Differential considered: Seizure breakthrough, electrolyte abnormality, infection, intracranial hemorrhage or mass Exam documented above, pertinent findings include: Sedated after the Valium. She is not hyperreflexic Lab Test results independently reviewed as above. Pertinent findings: CBC shows a white count of 2 well with 86% neutrophils Chemistries are notable for a sodium of 107, chloride 75 bicarb is 20 creatinine 0.32. Initial lactic was 5.8 in his come down to 2.9 with the initial L of fluid Imaging studies independently reviewed: Chest x-ray does not show any acute abnormalities Consultations: [address] Sands. His recommendation is q.2 hours neuro checks, adding urine and serum sodium and osmolality, TSH. No additional saline. We will start hypertonic saline 740 begin looking for beds for transfer we will start with [facility] as this is where her primary neurology and seizure follow up has been Treatments: Fluids, hypertonic saline, diazepam for acute seizure treatment Re-evaluations: Regarding bed availability. [facility] has no beds for the 1st see a full future. Currently on a 12-24 hour anticipate availability wait list for [place] and [place]. I did re-evaluate with her caregiver, he very much does not want her to be transferred outside the general area and explained that bed availability is going to make that, unfortunately, transfer decision rather than any personal choices. 853 care is reviewed with Dr. Stringer, ict quality assurance engineer [facility]. Bed is available he has accepted the patient. Primo Vega, RNA - [phone] primary caregiver. We discussed findings, bed is available at [facility] in [place]. I spoke with the admitting ict quality assurance engineer Dr. Stringer who has accepted her. His recommendation was to give 100 cc of hypertonic saline which we will do. We will plan on rechecking sodium approximately 15 minutes after that. Discussed with Sharri her seizure medications. He notes that she has had adverse reactions to pretty much everything besides Tegretol and diazepam and specifically did not tolerate Keppra. He notes that she had a 4 day admission at [facility] at 1 point in her seizures were completely managed with IV diazepam. She received 5 mg of that at approximately 6:[address] will [address] her on a q.6 hours scheduled regimen with next dose at noon if she is still in our facility. Discussion: 48-year-old woman with seizure disorder responsive only to Tegretol and diazepam, SIADH and significant seizure complications once her sodiums are typically below 122. Her caregiver notes she had been slightly constipated over the last couple of days who has been drinking excessive water which likely explains her impressive hyponatremia currently. Rivera catheter was placed and she is almost 2 L of very clear urine returning. Urine serum and arms as well as urinalysis are all currently pending. There does not appear to currently be any secondary explanation for her seizures such as infection. As this is a chronic and recurrent issue she did not have any head imaging head injury was not ordered today. Additional details regarding medications, she is supposed to change her fentanyl patch every 48 hours it was due to be replaced this morning we will do so now. 10am transport is here. Patient is becoming increasingly agitated, IV Valium is given prior to transport <Chana Acharya MD - Last Filed: 05/31/24 10:04> Lab Data Labs: Lab Results 05/31/24 05/31/24 05/31/24 Range/Units 05:30 07:30 08:15 WBC 12.0 H (4.5-11.0) X10^3/uL RBC 3.96 L (4.0-5.2) X10^6/uL Hgb 12.9 (12.0-16.0) g/dL Hct 37.2 (36-46) % MCV 94.1 (80-100) fL MCH 32.5 (26-34) PG MCHC 34.6 (30-36) % RDW 12.7 (11.6-14.8) % Plt Count 310 (150-400) X10^3/uL Neut % (Auto) 86.3 H (50-75) % Lymph % (Auto) 6.1 L (25-40) % [place] % (Auto) 7.4 (3-14) % Eos % (Auto) 0.0 L (2-4) % Baso % (Auto) 0.2 (0-2) % Neut # (Auto) 20166 H (8298-6841) /uL Lymph # (Auto) 700 L (8699-4449) /uL [place] # (Auto) 900 (0-900) /uL Eos # (Auto) 0 (0-450) /uL Baso # (Auto) 0 (0-100) /uL Sodium 107 L* 109 L* (137-145) mmol/L Potassium 4.0 (3.4-5.1) mmol/L Chloride 75 L* (98-107) mmol/L Carbon Dioxide 20 L (22-32) mmol/L BUN 2 L (7-17) mg/dL Creatinine 0.32 L (0.52-1.04) mg/dL Estimated GFR > 60 (>60) mL/min BUN/Creatinine Ratio 6.3 (6-22) Glucose 90 (70-100) mg/dL Lactate 5.8 H* 2.9 H (0.7-2.1) mmol/L Calcium 8.0 L (8.4-10.2) mg/dL Total Bilirubin 0.6 (0.2-1.3) mg/dL AST 40 H (14-36) IU/L ALT 28 (<35) IU/L Alkaline Phosphatase 71 (38-126) U/L Total Protein 6.6 (6.3-8.2) g/dL Albumin 4.1 (3.5-5.0) g/dL Globulin 2.5 (1.7-4.1) g/dL Albumin/Globulin Ratio 1.6 (1.0-2.8) Prolactin 17.5 (3.0-18.6) ng/mL Ur Random Sodium 6 L (30-90) mmol/L Carbamazepine 7.7 (4.0-12.0) ug/mL Ethyl Alcohol < 10 ( - 10) mg/dL Point of Care Testing Glucose POC 121 MDM Narrative Medical decision making narrative: 48-year-old female with history of Asperger's autism, seizure disorder, followed by Neurology, most recent regimen of Tegretol and Valium, with more frequent seizures through the night last night, initially altered possibly postictal, then had tonic-clonic shaking activity in the emergency department, IV Valium 5 mg given, seizure activity stopped. Labs pending including Tegretol level. No obvious trauma. Afebrile on triage. Caregiver nurse historian at bedside. No further seizure activity after IV Valium dose. Tegretol level pending. BNP shows low sodium 107, history of hyponatremia and SIADH noted. Patient has received normal saline thus far for initial elevated lactate. No ICU beds, likely will need transfer, signed out to oncoming ED shift physician Dr. Acharya Data collected from: Caregiver. He notes that they do have a cautery of providers majority of whom were at [facility]. There [place] neurologist manages the Tegretol but otherwise has minimal involvement with the care. Medical records reviewed: Only immediate records are an ER visit in 2019. Patient does have a history of prior hyponatremia and SIADH. Prior bariatric surgery. Differential considered: Seizure breakthrough, electrolyte abnormality, infection, intracranial hemorrhage or mass Exam documented above, pertinent findings include: Sedated after the Valium. She is not hyperreflexic Lab Test results independently reviewed as above. Pertinent findings: CBC shows a white count of 2 well with 86% neutrophils Chemistries are notable for a sodium of 107, chloride 75 bicarb is 20 creatinine 0.32. Initial lactic was 5.8 in his come down to 2.9 with the initial L of fluid Imaging studies independently reviewed: Chest x-ray does not show any acute abnormalities Consultations: [address] Sands. His recommendation is q.2 hours neuro checks, adding urine and serum sodium and osmolality, TSH. No additional saline. We will start hypertonic saline 740 begin looking for beds for transfer we will start with [place] as this is where her primary neurology and seizure follow up has been Treatments: Fluids, hypertonic saline, diazepam for acute seizure treatment Re-evaluations: Regarding bed availability. [facility] has no beds for the 1st see a full future. Currently on a 12-24 hour anticipate availability wait list for [place] and [place]. I did re-evaluate with her caregiver, he very much does not want her to be transferred outside the general area and explained that bed availability is going to make that, unfortunately, transfer decision rather than any personal choices. [address] care is reviewed with Dr. Stringer, ict quality assurance engineer [facility]. Bed is available he has accepted the patient. Primo Vega, RNA - [phone] primary caregiver. We discussed findings, bed is available at [facility] in [place]. I spoke with the admitting ict quality assurance engineer Dr. Stringer who has accepted her. His recommendation was to give 100 cc of hypertonic saline which we will do. We will plan on rechecking sodium approximately 15 minutes after that. Discussed with Sharri her seizure medications. He notes that she has had adverse reactions to pretty much everything besides Tegretol and diazepam and specifically did not tolerate Keppra. He notes that she had a 4 day admission at [facility] at 1 point in her seizures were completely managed with IV diazepam. She received 5 mg of that at approximately 6:[address] her on a q.6 hours scheduled regimen with next dose at noon if she is still in our facility. Discussion: 48-year-old woman with seizure disorder responsive only to Tegretol and diazepam, SIADH and significant seizure complications once her sodiums are typically below 122. Her caregiver notes she had been slightly constipated over the last couple of days who has been drinking excessive water which likely explains her impressive hyponatremia currently. Rivera catheter was placed and she is almost 2 L of very clear urine returning. Urine serum and arms as well as urinalysis are all currently pending. There does not appear to currently be any secondary explanation for her seizures such as infection. As this is a chronic and recurrent issue she did not have any head imaging head injury was not ordered today. Additional details regarding medications, she is supposed to change her fentanyl patch every 48 hours it was due to be replaced this morning we will do so now. 10am transport is here. Patient is becoming increasingly agitated, IV Valium is given prior to transport Critical Care Time <Chana Acharya MD - Last Filed: 05/31/24 10:04> Critical Care Time Critical Care Time: Yes Total Critical Care Time: 36 Attestation: Critical care time is separate from other billable procedures. There is a high probability of a significant, sudden or life-threatening deterioration that requires my full and direct attention, intervention and personal management. This critical care time includes consultation with family and other consulting doctors, review of records, and interpretation of data from labs, EKGs and imaging as well as managements of acute seizure, severe hyponatremia, multiple consultations Discharge Plan Departure Patient Disposition: Xfer Psychiatric Hosp Clinical Impression: Seizure, Acute hyponatremia, SIADH (syndrome of inappropriate ADH production), Autism Prescriptions: No Action carbamazepine [Tegretol] 200 mg tablet 400 mg PO TID Patient Comments: caregiver says took about 20 today Rx Instructions: 3 a.m., 3 p.m., 9 pm hydromorphone 4 mg tablet 4 mg PO Q4-6H MDD 5 tab PRN (Reason: pain) Patient Comments: site director states takes every 5 hours Rx Instructions: TAKE 1 TABLET BY MOUTH EVERY 4 TO 6 HOURS . MAX DAILY DOSE OF 5 TABLETS FILL 11/08/19 fentanyl 75 mcg/hr patch 72 hour 75 mcg topical Q48H Patient Comments: APPLY 1 PATCH Q 48 HOURS diazepam [Valium] 5 mg tablet 5 mg PO TID Rx Instructions: 3 a.m., 9 a.m., 3 p.m. thyroid (pork) [[place] Thyroid] 15 mg tablet 30 mg PO DAILY Patient Comments: TAKE 1 TABLET BY MOUTH EVERY MORNING ALONG WITH THE 60 MG TABLET. TOTAL 90 MG thyroid (pork) [[place] Thyroid] 60 mg tablet 60 mg PO DAILY Patient Comments: TAKE 1 TABLET BY MOUTH EVERY MORNING ALONG WITH THE 2x15 MG TABLET. TOTAL 90 MG multivitamin Liquid 10 ml PO DAILY sodium chloride 1 gram Tablet 1,000 mg PO DAILY Flax, Fish and Borage Oil 30 ml PO DAILY Heart Remedy 30 ml PO DAILY Lemon Fish Oil 30 ml PO DAILY [place] Coconut Oil 30 ml PO DAILY Referrals: Daniela Valadez MD [Primary Care Provider] -
--- NOTE | 2024-05-31 05:46 | PC.NURSE ---
Pt having an active seizure at bedside, Dakota BERNSTEIN aware and at bedside, airway intact, partner at bedside.
--- NOTE | 2024-05-31 05:47 | DI.RAD.S_ITS ---
PROCEDURE: XR CHEST 1V INDICATIONS: sz, eval for aspiration TECHNIQUE: One view of the chest was acquired. COMPARISON: [facility], CR, XR CHEST 1V, 01/25/2020, 18:45. FINDINGS: Surgical changes and devices: None. Lungs and pleura: Lungs are clear. No pleural effusions or pneumothorax. Mediastinum: Mediastinal contours appear normal. Heart size is normal. Bones and chest wall: No suspicious bony lesions. Overlying soft tissues appear unremarkable. IMPRESSION: No acute cardiopulmonary pathology. No discrepancies from preliminary reading. Dictated by: Evert Quintana M.D. on 05/31/2024 at 8:24 Approved by: Evert Quintana M.D. on 05/31/2024 at 8:26
[2024-05-31] MEDS: diazePAM 10 MG/2 ML SYRINGE 5 MG IV ×2 (05:53→10:04)
[2024-05-31] MEDS: SODIUM CHLORIDE 0.9% 1,000 ML 150 ML IV (05:55)
[2024-05-31 06:17] LABS: Add Manual Diff / Slide Review NO; Basophils Absolute Auto 0 /uL (0-100); Basophils Percent Auto 0.2 % (0-2); Eosinophils Absolute Auto 0 /uL (0-450); Hematocrit 37.2 % (36-46); Hemoglobin 12.9 g/dL (12.0-16.0); Lymphocytes Absolute Auto 700 /uL (1100-4500); Lymphocytes Percent Auto 6.1 % (25-40); Mean Corpuscular HGB Conc 34.6 % (30-36); Mean Corpuscular Hemoglobin 32.5 PG (26-34); Mean Corpuscular Volume 94.1 fL (80-100); Monocytes Absolute Auto 900 /uL (0-900); Monocytes Percent Auto 7.4 % (3-14); Neutrophils Absolute Auto 10400 /uL (1500-7000); Neutrophils Percent Auto 86.3 % (50-75); Platelet Count 310 X10^3/uL (150-400); Red Blood Cell Count 3.96 X10^6/uL (4.0-5.2); Red Cell Distribution Width 12.7 % (11.6-14.8)
[2024-05-31 06:25] LABS: Albumin 4.1 g/dL (3.5-5.0); Albumin Globulin Ratio 1.6 (1.0-2.8); Alkaline Phosphatase 71 U/L (38-126); Aspartate Aminotransferase 40 IU/L (14-36); Bilirubin Total 0.6 mg/dL (0.2-1.3); Carbon Dioxide 20 mmol/L (22-32); Estimated Glomerular Filt Rate > 60 mL/min (>60); Ethanol (ETOH) < 10 mg/dL; Globulin 2.5 g/dL (1.7-4.1); Glucose 90 mg/dL (70-100); Total Protein 6.6 g/dL (6.3-8.2)
[2024-05-31 06:27] LABS: Lactate (Lactic Acid) 5.8 mmol/L (0.7-2.1)
[2024-05-31 06:31] LABS: Alanine Aminotransferase 28 IU/L (<35); HEMOLYSIS 45 (0-50)
--- NOTE | 2024-05-31 06:37 | PC.NURSE ---
Notified Dakota BERNSTEIN in regard to pt's lactate level of 5.8
[2024-05-31 06:41] LABS: Prolactin 17.5 ng/mL (3.0-18.6)
[2024-05-31 06:44] LABS: BUN Creatinine Ratio 6.3 (6-22); Blood Urea Nitrogen 2 mg/dL (7-17)
[2024-05-31 06:47] LABS: Sodium 107 mmol/L (137-145)
[2024-05-31 06:48] LABS: Chloride 75 mmol/L (98-107)
[2024-05-31 07:47] LABS: Reflexed Lactate in 2 Hours Y
[2024-05-31 08:14] LABS: Sodium 109 mmol/L (137-145)
[2024-05-31 08:15] LABS: Lactate 2HR (Lactic Acid Rflx) 2.9 mmol/L (0.7-2.1)
[2024-05-31 08:42] LABS: Sodium Urine Random 6 mmol/L (30-90)
[2024-05-31] MEDS: SODIUM CHLORIDE 3 % 100 ML 600 ML IV (09:22)
--- NOTE | 2024-05-31 10:14 | PC.NURSE ---
NUC Note: Transfer arranged with [facility], accepted by Dr. Olivarez to ICU Rm 341 Bed 2. [facility] arranged for transport. Called and cancelled all other hospitals we were on waitlist for.
[2024-06-01 04:13] LABS: Carbamazepine Tegretol Level 7.7 ug/mL (4.0-12.0)
[2024-06-01 15:40] LABS: Osmolality, Serum 279 mOsmol/kg (275-295)
== END 2024-05-31 10:41 ==
PROVIDERS: Emergency Medicine; Emergency Provider Emergency Medicine; PCP Internal Medicine
DX: G40.909 Epilepsy, unspecified, not intractable, without status epilepticus (principal); E22.2 Syndrome of inappropriate secretion of antidiuretic hormone; F84.0 Autistic disorder
CPT/HCPCS: 36415; 71045; 80053; 80156; 80320; 82962; 83605; 83930; 84146; 84295; 84300; 85025; 87040; 96361; 96374; 96376; 99284; 99291; J3360